=== PATIENT | male | born 1965 | race Caucasian/White ===

== ENCOUNTER 2016-08-08 17:00 | Inpatient (IN) ==
[2016-08-08] MEDS ORDERED: Dextrose Gel 15 GM PO PRN ×2 (20:36)
[2016-08-08] MEDS ORDERED: D5% in Water 1,000 ML IVC PRN (20:36)
[2016-08-08] MEDS ORDERED: *HR* Dextrose 50 % in Water (Syg) 50 ML SYRINGE IVP PRN (20:36)
[2016-08-08] MEDS ORDERED: Naloxone 0.4 MG/ML INJ IVP PRN (20:39)
[2016-08-08] MEDS: Insulin LISPRO 300 UNITS/3 ML VIAL SQ SCH ×2 (21:43→21:46)
[2016-08-08] MEDS: Insulin DETEMIR 100 UNIT/ML X5UNITS SQ SCH (21:46)
--- NOTE | 2016-08-08 22:12 | Internal Med History&Physical ---
<Mary Jackson - Last Filed: 08/08/16 23:49> Date of Encounter: 08/08/16 Time of Encounter: 21:30 Assessment and Plan (1) Atrial flutter Current visit: No Status: Acute - New onset of asymptomatic Atrial flutter. - Likely secondary to underlying RUSS given his morbid obesity and reported snoring. - Rate control with metoprolol. Will continue his home dose Lopressor 100 mg PO BID while adding Lopressor 25 mg PO q6H, which can be discontinued once patient' s heart rate gets better controlled. - Need anticoagulation given [id number] score 4. - Given the potential LHC tomorrow, will given one dose of Lovenox SC now for anticoagulation. - Appreciate cardiology input regarding anticoagulation, especially if patient gets LHC during this hospital stay. - Closely monitor with telemetry. Qualifiers: Atrial flutter type: unspecified Qualified Code(s): I48.92 - Unspecified atrial flutter (2) Ischemic cardiomyopathy Current visit: Yes Status: Acute - Nuclear stress test on 07/30/16 suggests inferior infarct with significant reversible romelia-infarct ischemia involving distal inferior, inferolateral & anterolateral pandey & apex with gated EF 35%. - Patient can benefit from LHC. - Will consult cardiology for possible LHC during current hospital stay. Appreciate cardiology input. - NPO except ice chips or medications after midnight. (3) Sleep apnea Current visit: Yes Status: Suspected - Patient's STOP BANG score > 5 suggests high risk of obstructive sleep apnea. - May contribute to his current A-flutter. - Patient will need RUSS work-up such as outpatient sleep study. Qualifiers: Sleep apnea type: obstructive Qualified Code(s): G47.33 - Obstructive sleep apnea (adult) (pediatric) (4) CAD (coronary artery disease) Current visit: Yes Status: Chronic - History of MO with LHC & stents in 02/2012 & 07/2013. - Continue aspirin, Plavix, metoprolol, statin and Imdur. Qualifiers: Coronary Disease-Associated Artery/Lesion type: [place] artery [place] vs. transplanted heart: [place] heart Associated angina: with stable angina Qualified Code(s): I25.118 - Atherosclerotic heart disease of [place] coronary artery with other forms of angina pectoris (5) CHF (congestive heart failure) Current visit: Yes Status: Chronic - Systolic CHF with gated EF 35% on recent nuclear stress test. - Appears to be controlled as patient reports no significant lower extremity edema. - Per patient, his last echo was years ago. Will obtain echocardiogram for further evaluation. - Continue home regimen diuretics. Qualifiers: Congestive heart failure type: systolic Congestive heart failure chronicity : chronic Qualified Code(s): I50.22 - Chronic systolic (congestive) heart failure (6) Diabetes mellitus Current visit: Yes Status: Chronic - Poorly controlled as Hgb A1C 11.8 on 06/10/16. - Start basal and sliding scale insulin with glucose monitoring. Qualifiers: Diabetes mellitus type: type 2 Diabetes mellitus complication status: with unspecified complications Diabetes mellitus halfway insulin use: without halfway use Qualified Code(s): E11.8 - Type 2 diabetes mellitus with unspecified complications (7) Hypertension Current visit: Yes Status: Chronic - BP within normal range. - Continue home antihypertensive regimen. Qualifiers: Hypertension type: essential hypertension Qualified Code(s): I10 - Essential (primary) hypertension (8) Hyperlipidemia Current visit: Yes Status: Chronic - Continue statin. Qualifiers: Hyperlipidemia type: unspecified Qualified Code(s): E78.5 - Hyperlipidemia , unspecified Internal Medicine - H&P: HPI Chief complaint: Exertional chest pain, dyspnea and diaphoresis Admitted From: Emergency Dept Plans for Post Hospital Care: Home History of present illness: Mr. Mcguire is a 50 year old morbidly obese male with PMH of CHF (likely systolic ), DM, HTN, hyperlipidemia and history of MO s/p multiple stents in 2011 & 2013. Patient had recent nuclear stress test done on 07/30/16, which suggests inferior infarct with significant reversible romelia-infarct ischemia involving distal inferior, inferolateral & anterolateral pandey & apex with gated EF 35%. Patient was in [facility] clinic today to discuss the result but found to have A-flutter on EKG. Patient was sent to [facility] where he got one dose of Lopressor 50 mg PO and then transferred to [place] for further evaluation and management. Upon encounter, patient denies current chest pain/discomfort, dyspnea, diaphoresis, palpitation, lightheadedness, syncope. But patient reports having worsening fatigue and exertional chest pain for past one month. He describes the left-sided chest pain as pressure-like radiating to the left scapula. It's aggravated by exertion and alleviated by rest. It's associated with shortness of breath, diaphoresis and nausea. Patient reports weight gain of 7 lb over past 2 weeks but states his bilateral lower extremity edema has been well-controlled. Per patient, Dr. Houston had discussed with him regarding LHC and he agrees to get that done. Patient states he is never diagnosed with sleep apnea but admits significant snoring when sleeping. Patient denies home oxygen use. Patient is full code. Past Med Surg Social Fam HX - Past Medical History Medical history: CHF, diabetes, hyperlipidemia, hypertension, myocardial infarction Psychiatric history: no psych history - Past Surgical History Surgical History: angioplasty/stent (02/2012 & 07/2013), cataract (Bilateral), other (Right foot fatty tumor removal at age 10) - Social History Smoking Status: Never smoker Smokeless Tobacco Status: No Alcohol use: none Drug use: none - Family History Father Living Status: Age at : 60 Hx Family Cardiac Disorders: Yes (CHF, HTN) Hx Family Endocrine Disorder: Yes (DM) Hx Family Neurologic Disorders: Yes (CVA) Mother Living Status: Age at : 70 Hx Family Cardiac Disorders: Yes (HTN) Hx Family Neurologic Disorders: Yes (CVA, dementia) Internal Medicine - H&P: Meds Clopidogrel [Plavix] 75 mg PO DAILY 01/06/16 [History] Insulin DETEMIR [Levemir Flextouch] 30 unit SQ BID 01/06/16 [History] Isosorbide MONOnitrate [Isosorbide Mononitrate] 30 mg PO DAILY 01/06/16 [History ] Linagliptin [Tradjenta] 5 mg PO DAILY 01/06/16 [History] Magnesium Oxide [Mag-Ox] 400 mg PO DAILY 01/06/16 [History] Metformin [Glucophage] 500 mg PO BIDWM 01/06/16 [History] Metoprolol [Lopressor] 100 mg PO BID 01/06/16 [History] Potassium Chloride [Klor-Con Sprinkle] 10 meq PO DAILY 01/06/16 [History] Simvastatin [Zocor] 80 mg PO HS 01/06/16 [History] Spironolactone [Aldactone] 50 mg PO DAILY 01/06/16 [History] Bumetanide [Bumex] 2 mg PO DAILY 08/08/16 [History] Escitalopram [Lexapro] 20 mg PO DAILY 08/08/16 [History] GlyBURIDE [GlyBURIDE] 10 mg PO DAILY 08/08/16 [History] HYDROcodone/Acet 5/325 mg [[place] 5-325 mg] 1 tab PO Q8H PRN 08/08/16 [History] Loratadine [Loratadine] 10 mg PO DAILY 08/08/16 [History] Montelukast [Singulair] 10 mg PO DAILY 08/08/16 [History] Tizanidine HCl 2 mg PO TID PRN 08/08/16 [History] Allergies No Known Allergies Allergy (Unverified 01/03/16 12:49) All Systems PM: A 10-system review of systems was performed and is negative for pertinent findings except as documented above in the HPI. - Constitutional Constitutional: fatigue, weight gain (7 lbs over 2 weeks), no chills, no fever(s ) - EENT Eyes: no change in vision Ears: no decreased hearing Nose, mouth and throat: no dysphagia, no odynophagia - Cardiovascular Cardiovascular ROS IM: as per HPI - Respiratory Respiratory: snoring, no cough, no hemoptysis - Gastrointestinal Gastrointestinal: nausea, no abdominal pain, no diarrhea, no hematochezia, no melena, no vomiting - Genitourinary Genitourinary ROS male: no difficulty urinating, no dysuria, no hematuria - Musculoskeletal Musculoskeletal ROS IM: arthralgias (Knee), no myalgias - Integumentary Integumentary IM: no pruritus, no rash - Neurological Neurological ROS: numbness (Bilateral distal upper extremitiy, chronic), no focal weakness - Hematologic/Lymphatic Hematologic/Lymphatic: no easy bleeding, no easy bruising - Constitutional Vitals: Temp Pulse Resp BP Pulse Ox 98.0 F 123 18 100/73 91 08/08/16 20:52 08/08/16 20:52 08/08/16 20:52 08/08/16 20:52 08/08/16 20:52 General appearance: Present: cooperative, A&O X 3, morbidly obese, no acute distress, answers questions appropriately - Head Head exam: Present: atraumatic, normocephalic - Eye Eye exam: Present: PERRL, conjuntiva pink, sclera anicteric - Neck Neck exam general surgery: Present: supple, trachea midline. Absent: lymphadenopathy - Respiratory Respiratory exam: Present: decreased breath sounds. Absent: accessory muscle use, rales, rhonchi, wheezes - Cardiovascular Cardiovascular exam: Present: irregular rhythm, +S1, +S2, tachycardia. Absent: diastolic murmur, gallop, rubs, systolic murmur - GI/Abdominal GI/Abdominal exam: Present: normal bowel sounds, soft, no peritoneal signs. Absent: distended, tenderness - Extremities Exam Extremities exam: Present: warm, radial pulses palpable and symetrical. Absent : calf tenderness, cyanotic, pedal edema Additional comments: Venous stasis appearance of bilateral lower extremities - Neurological Exam Neurological exam: Present: CN II-XII intact, oriented X3, no focal deficits. Absent: pronater drift, facial droop, speech deficit - Skin Skin exam: Present: dry, intact <Tyler Daly - Last Filed: 08/09/16 06:09> Date of Encounter: 08/08/16 Internal Medicine - H&P: HPI History of present illness: Mr. Mcguire is a 50 year old male All Systems PM: A 10-system review of systems was performed and is negative for pertinent findings except as documented above in the HPI. - Constitutional Vitals: Temp Pulse Resp BP Pulse Ox 97.7 F 105 17 125/81 95 08/09/16 04:46 08/09/16 04:46 08/09/16 04:46 08/09/16 04:46 08/09/16 04:46 Internal Med - H&P Results - Labs CBC & Chem 7: 08/09/16 04:35 08/09/16 04:35 Labs: Short CBC 08/09/16 Range/Units 04:35 WBC 9.1 (4.3-11.1) K/mcL Hgb 13.3 (12.9-16.9) g/dL Hct 40.9 (37.5-50.1) % Plt Count 184 (140-400) K/mcL BMP 08/09/16 04:35 Sodium 135 L Potassium 4.5 Chloride 101 Carbon Dioxide 25 BUN 20 Creatinine 1.22 Glucose 303 H Calcium 8.7 Cardiac Enzymes 08/09/16 Range/Units 04:35 Troponin I 0.01 (0-0.03) ng/mL - EKG Data -: EKG Interpreted by Myself - Diagnostic Studies Chest x-ray Status: image reviewed by me - Attending Attestation I personally interviewed and examined this patient and my medical decision- making was reviewed with the Resident Physician. I agree with the documented findings, disposition and treatment plan as described.
[2016-08-08] MEDS ORDERED: *HR* Enoxaparin 150 MG/ML SYRINGE SQ STA (22:17)
[2016-08-08] MEDS: Metoprolol 100 MG TABLET PO SCH (23:18)
[2016-08-09 05:05] LABS: Hematocrit 40.9 % (37.5-50.1); Hemoglobin 13.3 g/dL (12.9-16.9); Mean Corpuscular HGB Conc 32.5 g/dL (31.6-35.5); Mean Corpuscular Hemoglobin 28.2 pg (28.0-33.3); Mean Corpuscular Volume 86.7 fL (83.0-100.0); Mean Platelet Volume 9.9 fL (9.4-12.4); Platelet Count 184 K/mcL (140-400); Red Blood Count 4.72 M/mcL (4.19-5.50); Red Cell Distribution Width 14.1 % (11.5-14.5)
[2016-08-09 05:23] LABS: BUN/Creatinine Ratio 16 (6-26); Blood Urea Nitrogen 20 mg/dL (8-26); Calcium 8.7 mg/dL (8.6-10.8); Carbon Dioxide 25 mEq/L (19-29); Chloride 101 mEq/L (98-109); Glucose 303 mg/dL (70-99); Magnesium 1.7 mg/dL (1.6-2.6); Osmolality,Calculated 294 (280-300); Phosphorous 4.1 mg/dL (2.3-4.7); Potassium 4.5 mEq/L (3.5-4.5); Sodium 135 mEq/L (136-145); eGFR For African Americans > 60 (> 60); eGFR For Non-African Americans > 60 (> 60)
[2016-08-09] MEDS ORDERED: Perflutren Lipid Microsphere 1.3 ML in 0.9 % Sodium Chloride 8.7 ML IVP ONE (08:10)
[2016-08-09] MEDS ORDERED: Perflutren Lipid Microsphere 2 ML VIAL ONE (08:14)
--- NOTE | 2016-08-09 08:51 | Cardiology Consult Note ---
Date of Encounter: 08/09/16 Time of Encounter: 08:49 Assessment and Plan (1) Ischemic cardiomyopathy Current Visit: Yes Status: Acute Recent nuclear stress shows LVEF 35% with significant reversible ischemia ( inferior, inferolateral, anterolateral, apex). Prior LHC in 07/2013 with stent to OM. Discussed with patient. Will proceed with [facility] today. Continue aspirin and plavix. Switch simvastatin to atorvastatin 80mg daily. Continue metoprolol and imdur. Further recommendations will depend on [facility] findings. (2) Chest pain Current Visit: Yes Status: Acute see plan above, [facility] today Qualifiers: Chest pain type: unspecified Qualified Code(s): R07.9 - Chest pain, unspecified (3) Abnormal stress test Current Visit: Yes Status: Acute see plan above, [facility] today. (4) Chronic systolic (congestive) heart failure Current Visit: Yes Status: Acute LVEF 35% on recent nuclear stress. In 2013, LVEF was 40% on LHC and 55% on TTE. Will switch metoprolol tartrate to metoprolol succinate. Continue bumex and spirinolactone. He should also be started on CAMRON-I prior to discharge if BP allows. Further recs depending on [facility] results. We will continue to follow. (5) Atrial flutter Current Visit: No Status: Acute New diagnosis. Continue current management for now and continue to monitor on telemetry. Depending on [facility] findings, if he remains in atrial flutter may consider ADEEL-DCCV prior to discharge. Will need to be discharged on anticoagulation and have follow with EP (Dr. Darrel Taylor). Qualifiers: Atrial flutter type: unspecified Qualified Code(s): I48.92 - Unspecified atrial flutter Discussion w patient/family: The assessment and plan as outlined above was discussed with the patient and/or family members who expressed understanding and agreement. All questions were answered. Thank you for involving us in the care of your patient. Please call with any questions. History of Present Illness Consult date: 08/09/16 Requesting physician: Tyler Daly Consult reason: abnormal stress test, atrial flutter Chief complaint: fatigue, chest discomfort History of present illness: Mr. Mcguire is a 50 year old male with history of CAD s/p MUNA to OM in 2013. He recently had a nuclear stress test on 07/30/16 which showed LVEF 35% with inferior PA with ischemia of the mid-distal inferior, inferolateral wall, anterolateral wall, and apex. He was seen by Dr. Houston yesterday in cardiology clinic. He complained of extreme fatigue and some chest discomfort. ECG shows atrial flutter with RVR and he was sent to the ED to be admitted to the hospital. Currently, he is admitted to [facility] telemetry unit. He denies any current chest pain or other new complaints. Past Med Surg Social Fam HX - Past Medical History Medical history: CHF, diabetes, hyperlipidemia, hypertension, myocardial infarction Psychiatric history: no psych history - Past Surgical History Surgical History: angioplasty/stent (02/2012 & 07/2013), cataract (Bilateral), other (Right foot fatty tumor removal at age 10) - Social History Smoking Status: Never smoker Smokeless Tobacco Status: No Alcohol use: none Drug use: none - Family History Father Living Status: Age at : 60 Hx Family Cardiac Disorders: Yes (CHF, HTN) Hx Family Endocrine Disorder: Yes (DM) Hx Family Neurologic Disorders: Yes (CVA) Mother Living Status: Age at : 70 Hx Family Cardiac Disorders: Yes (HTN) Hx Family Neurologic Disorders: Yes (CVA, dementia) Medications and Allergies Clopidogrel [Plavix] 75 mg PO DAILY 01/06/16 [History] Insulin DETEMIR [Levemir Flextouch] 30 unit SQ BID 01/06/16 [History] Isosorbide MONOnitrate [Isosorbide Mononitrate] 30 mg PO DAILY 01/06/16 [History ] Linagliptin [Tradjenta] 5 mg PO DAILY 01/06/16 [History] Magnesium Oxide [Mag-Ox] 400 mg PO DAILY 01/06/16 [History] Metformin [Glucophage] 500 mg PO BIDWM 01/06/16 [History] Metoprolol [Lopressor] 100 mg PO BID 01/06/16 [History] Potassium Chloride [Klor-Con Sprinkle] 10 meq PO DAILY 01/06/16 [History] Simvastatin [Zocor] 80 mg PO HS 01/06/16 [History] Spironolactone [Aldactone] 50 mg PO DAILY 01/06/16 [History] Bumetanide [Bumex] 2 mg PO DAILY 08/08/16 [History] Escitalopram [Lexapro] 20 mg PO DAILY 08/08/16 [History] GlyBURIDE [GlyBURIDE] 10 mg PO DAILY 08/08/16 [History] HYDROcodone/Acet 5/325 mg [[place] 5-325 mg] 1 tab PO Q8H PRN 08/08/16 [History] Loratadine [Loratadine] 10 mg PO DAILY 08/08/16 [History] Montelukast [Singulair] 10 mg PO DAILY 08/08/16 [History] Tizanidine HCl 2 mg PO TID PRN 08/08/16 [History] Allergies No Known Allergies Allergy (Unverified 01/03/16 12:49) All Systems Review: A 10-system review of systems was performed and is negative for pertinent findings except as documented above in the HPI. Physical Examination Vital Signs, Last 4 Hours Temp Pulse Resp BP Pulse Ox 08/09/16 07:10 97.9 F 99 16 109/78 93 General: Conversant, No Apparent Distress HEENT: Atraumatic, Normocephaly, Mucus Membranes Moist Neck: Normal carotid pulses Cardiac: Reg Rate and Rhythm, Normal S1 and S2, No Murmur Lungs: Normal Breath Sounds, No Wheeze, Rales, Rhonchi Neuro: Alert and responsive, No focal deficits noted Abdomen: Soft, Non-Tender Skin: No rashes noted on visualized skin Extremities: Other (1+ LE edema bilaterally, skin changes of chronic venous stasis) Results 08/09/16 04:35 08/09/16 04:35 Lab Results 08/09/16 08/09/16 08/09/16 04:35 04:35 04:35 WBC 9.1 Hgb 13.3 Hct 40.9 Plt Count 184 Sodium 135 L Potassium 4.5 Chloride 101 Carbon Dioxide 25 BUN 20 Creatinine 1.22 Glucose 303 H Calcium 8.7 Magnesium 1.7 Troponin I 0.01 - Imaging and Cardiology Chest Xray: report reviewed Stress Test: report reviewed Other Results: telemetry reviewed - EKG Interpretation EKG results cardiology: personally reviewed Consult Discharge Plan - Plan Referrals: Kandis Miles, RECRUITING ADMINISTRATOR [Primary Care Provider] -
[2016-08-09] MEDS: Insulin LISPRO 300 UNITS/3 ML VIAL SQ SCH ×4 (09:05→20:30)
[2016-08-09] MEDS: Insulin DETEMIR 100 UNIT/ML X5UNITS SQ SCH ×2 (09:05→20:29)
[2016-08-09] MEDS: Metoprolol 100 MG TABLET PO SCH (09:05)
[2016-08-09 09:22] LABS: INR 1.1; Prothrombin Time 12.2 Seconds (9.4-12.1)
[2016-08-09] MEDS ORDERED: *HR* FentaNYL (PF) 100 MCG/2 ML VIAL ONE (09:23)
[2016-08-09] MEDS ORDERED: Verapamil 5 MG/2 ML VIAL ONE (09:23)
[2016-08-09] MEDS ORDERED: 0.9 % Sodium Chloride 1,000 ML ONE ×2 (09:24→09:54)
[2016-08-09] MEDS ORDERED: *HR* Heparin 10,000 UNIT/10 ML VIAL ONE (09:24)
[2016-08-09] MEDS ORDERED: *HR* Midazolam HCl 5 MG/5 ML VIAL IVP ONE (09:24)
[2016-08-09] MEDS ORDERED: Nitroglycerin 1,000 MCG/10 ML VIAL IV ONE (09:24)
[2016-08-09] MEDS ORDERED: Heparin 1,000 UNITS/500 mL NS 500 ML ONE (09:24)
[2016-08-09 09:25] LABS: Activated Partial Thrombo Time 36.1 Seconds (26.0-36.0)
--- NOTE | 2016-08-09 10:07 | Pre-Sedation Evaluation ---
Pre-sedation evaluation - Pre-sedation checklist Date of procedure: 08/09/16 Procedure: heart cath Recent Vitals: Last Vital Signs Temp 97.9 F 08/09/16 07:10 Pulse 99 08/09/16 07:10 Resp 16 08/09/16 07:10 BP 109/78 08/09/16 07:10 Pulse Ox 93 08/09/16 07:10 H&P (including ROS) documented in medical record: Yes Previous reaction to sedatives/anesthetics: No Dietary Status: NPO after Midnight Dentition: No loose teeth or bridges ASA Classification *see protocol: CLASS II-Mild systemic disease Plan of Care: Pt appropriate candidate for procedure/moderate/conscious sedation , Risks/benefits of procedure/sedation discussed w/ patient/family
[2016-08-09] MEDS ORDERED: Nitroglycerin Spray 4.9 GM BOTTLE ONE (10:17)
--- NOTE | 2016-08-09 11:16 | Invasive Diagnostic Lab Proc ---
Name: Jp Mcguire Date of Study: 08/09/2016 Date: 1965 Ht: 70.9in Medical Record#: [id number] Age: 50 Wt: 335.10lb Gender: Male BSA: 2.62 Order #: [id number] BMI: 46.91 Physicians Procedure Physician: Dino Clay MD, [facility] Referring MD: Referring MD: Staff Name Position Time In Jesus Trejo RN Factory Machine Computer Operator 10:05 AM Chen Jiménez RT (R) Scrub 10:05 AM Mayelin Poe RN Monitor 10:05 AM Indications Indication Unstable Angina Abnormal Test - Stress Cardiomyopathy Procedures Performed Procedure L HRT ARTERY/VENTRICLE ANGIO Pre-Procedure Checklist Informed consent is complete signed and on chart. H\\T\\P is on chart. ID band is on and ID verified with patient. Patient NPO for procedure The procedure was described for the patient and questions were answered. Blood Pressure: 109/78 ECG is on chart. Rhythm: Atrial Flutter Plan of Care Patient will tolerate the procedure without complications. Adequate level of comfort will be maintained. Hemodynamics will remain stable Patient will recover from procedure without complications. Respiratory function will be maintained. Cardiac rhythm will remain stable. Patient temperature will be maintained. Patient and/or family have verbalized understanding of the procedure. Patient Education Chief Complaint/Reason for Test: Cardiac Cath Developmental Category: Adult (18-64 years) Developmentally Appropriate for Age: Yes Learning Barriers: None Education Needs: Procedure Education Method: Verbal Information Taught: Cardiac Cath Educational Evaluation: Able to repeat information Intravenous Access Time IV Size Location DC'd Fluid/Drip Rate Units RN 10:00 AM 18g 1 /" Patent On Arrival Rt Hand 0.9NaCl 25 ml/hr Jesus Trejo RN Allergies No Known Allergies Vital Signs Time BP (mmHg) HR (bpm) O2 Sat. RR (bpm) LOC 09:33 AM 109 / 78 99 93 % 16 5 = Fully awake and oriented or at pre-proc level 10:16 AM / % 4 = Oriented but drowsy 10:16 AM / % 4 = Oriented but drowsy 10:01 AM 118 / 62 110 93 % 9 10:06 AM 99 / 62 113 94 % 10:10 AM 100 / 60 97 92 % 13 10:15 AM 107 / 60 98 97 % 17 10:20 AM 117 / 85 107 97 % 21 10:25 AM 133 / 55 111 95 % 18 10:30 AM 111 / 63 109 95 % 14 10:35 AM 100 / 60 110 94 % 14 10:40 AM 94 / 58 99 95 % 9 10:31 AM / % 4 = Oriented but drowsy Procedural Medications Time Medication Dose Units Method Given By 10:02 AM Oxygen 2 L/min nasal cannula Jesus Trejo RN 10:03 AM Versed 2 mg Intravenous Jesus Trejo RN 10:03 AM Fentanyl 50 mcg Intravenous Jesus Trejo RN 10:10 AM Oxygen 5 L/min nasal cannula Jesus Trejo RN 10:16 AM Nitroglycerin 400 mcg Sublingual Jesus Trejo RN 10:18 AM Lidocaine 2% 0.5 ml Subcutaneous Dino Clay MD, FACC 10:21 AM Lidocaine 2% 19 ml Subcutaneous Dino Clay MD, FACC 10:28 AM Versed 1 mg Intravenous Jesus Trejo RN 10:28 AM Fentanyl 25 mcg Intravenous Jesus Trejo RN ASA Classification: CLASS II- Mild systemic disease (i.e. well-controlled diabetes, hypertension, asthma, cigarette smoking) Rosy Score Preprocedure Postprocedure Activity 2- Moves 4 extremities sustained head lift Activity 2- Moves 4 extremities sustained head lift Circulation 2- SBP +/= 20 points of pre-anesthetic level Circulation 2- SBP +/= 20 points of pre-anesthetic level Consciousness 2- Awake and alert oriented x 3 Consciousness 2- Awake and alert oriented x 3 O2 Saturation 2- Able to maintain O2 satruation of 92% on room air O2 Saturation 2- Able to maintain O2 satruation of 92% on room air Respiratory 2- Able to deep breathe and cough well Respiratory 2- Able to deep breathe and cough well Total Score 10 Total Score 10 Contrast Agent: Isovue Diagnostic Contrast: 72 ml Total Contrast: 72 ml Fluoro Dose: 334 mGy Procedure Log Time Note Enter By 09:32 AM CathStat 09:58 AM Pt arrived to corn lab technician 2 at 09:58 scoates 09:59 AM Case Start 09:59 AM Vitals capture started with the following parameters, Patient=Adult, Interval=5 min, Initial Kcokgayt=684 mmHg, Deflation Rate=5 mmHg, Cuff placed on Left Arm 09:59 AM Physician arrived 09:59 scoates 10:00 AM Meet and greet completed scoates 10:00 AM Sign in performed according to hospital policy. scoates 10:00 AM Procedure start 10:00 scoates 10:01 AM KF=588 bpm, OWLI=743/62 mmhg, SpO2=93.0 %, Resp=9 B/min 10:02 AM Time: 10:02 Oxygen on at 2 L/min per nasal cannula by Jesus Trejo RN scoates 10:03 AM Time: 10:03 Versed 2 mg Intravenous Given by Jesus Trejo RN scoates 10:03 AM Time: 10:03 Fentanyl 50 mcg Intravenous Given by Jesus Trejo RN scoates 10:05 AM Jesus Trejo RN Position: Factory Machine Computer Operator Time in: 10:05 scoates 10:05 AM Chen Jiménez RT (R) Position: Scrub Time in: 10:05 scoates 10:06 AM Mayelin Poe RN Position: Monitor Time in: 10:05 scoates 10:06 AM Patient charges- Angio tray pack, Navilyst 3mm J, Pulse Oximetry and ACIST tubing and transducer scoates 10:06 AM Case Delayed No. inpatient scoates 10:06 AM CK=390 bpm, NIBP=99/62 mmhg, SpO2=94.0 %, Comment=aflutter 10:07 AM Hair removed from procedure site in procedure lab using clippers. Rt wrist and rt groin prepped with Chloraprep by Jesus Trejo RN, safety strap applied then patient was draped. Skin intact. scoates 10:08 AM ASA Class CLASS II- Mild systemic disease (i.e. well-controlled diabetes, hypertension, asthma, cigarette smoking) scoates 10:10 AM Recorded ECG: RI=140 Condition=Condition 1 10:10 AM HR=97 bpm, POJI=184/60 mmhg, SpO2=92.0 %, Resp=13 B/min, Comment=aflutter 10:10 AM Time: 10:10 Oxygen on at 5 L/min per nasal cannula by Jesus Trejo RN scoates 10:14 AM Reference ECG taken 10:15 AM HR=98 bpm, AVHG=384/60 mmhg, SpO2=97.0 %, Resp=17 B/min, Comment=aflutter 10:16 AM Time: 10:16 Patient comfortable and pain free: Yes scoates 10:16 AM Time: 10:16LOC: 4 = Oriented but drowsy scoates 10:16 AM Clinical Presentation: Unstable angina scoates 10:16 AM Time out performed according to hospital policy scoates 10:17 AM Pressure channel 1 zeroed. 10:17 AM Time: 10:16 Nitroglycerin 400 mcg Sublingual Given by Jesus Trejo RN scoates 10:18 AM Time: 10:18 0.5 ml Lidocaine 2% to right radial Subcutaneous Given by Dino Clay MD, [facility] scoates 10:19 AM Unsuccessful access attempt # 1 into the right Radial artery. Manual pressure applied to achieve hemostasis.. scoates 10:20 AM HM=270 bpm, YPIS=806/85 mmhg, SpO2=97.0 %, Resp=21 B/min, Comment=aflutter 10: AM Time: 10: 19 ml Lidocaine 2% to right groin Subcutaneous Given by Dino Clay MD, [facility] scoates 10: AM SK=574 bpm, OOGF=683/55 mmhg, SpO2=95.0 %, Resp=18 B/min, Comment=aflutter 10:27 AM access obtained. scoates 10: AM Time: : Versed 1 mg Intravenous Given by Jesus Trejo RN scoates 10: AM Time: 10: Fentanyl 25 mcg Intravenous Given by Jesus Trejo RN scoates 10: AM sheath removed, d/t venous access. holding pressure at this time scoates 10:30 AM XO=196 bpm, AXIT=218/63 mmhg, SpO2=95.0 %, Resp=14 B/min 10:31 AM Time: 10:16LOC: 4 = Oriented but drowsy scoates 10:31 AM Time: 10:16 Patient comfortable and pain free: Yes scoates 10:31 AM Access obtained by percutaneous puncture. 5Fr 23cm St Yrn Ultimum sheath placed in right Femoral artery. [id number] scoates 10:32 AM 5Fr FL 4 catheter inserted over the wire [facility] scoates 10:33 AM Recorded Pressure: Ao, HR=94, Condition=Condition 1 (Aorta) Ao 102/83/92 10:34 AM LCA angiography performed in multiple views. scoates 10:34 AM Lesion found in Mid LAD. Pre Stenosis: 50 Pre JEROME Flow: scoates 10:34 AM Catheter removed scoates 10:34 AM 5Fr FR 4 catheter inserted over the wire DNC scoates 10:35 AM SU=128 bpm, QVTX=270/60 mmhg, SpO2=94.0 %, Resp=14 B/min, Comment=aflutter 10:35 AM Pressure channel 1 zeroed. 10:36 AM Recorded Pressure: LV, JG=253, Condition=Condition 1 (Left Ventricle) LV 102/2/9 10:36 AM Catheter selectively placed in left ventricle scoates 10:36 AM Bolus angiogram of left Ventricle complete: 12 ml/sec for a total of 36 mls scoates 10:37 AM Recorded Pressure: LV, Ao, AQ=482, Condition=Condition 1 (Left Ventricle) LV 100/-2/59, (Aorta) Ao 98/61/76 10:38 AM Recorded Pressure: Ao, HR=92, Condition=Condition 1 (Aorta) Ao 93/77/85 10:38 AM RCA angiography performed in multiple views. scoates 10:40 AM HR=99 bpm, NIBP=94/58 mmhg, SpO2=95.0 %, Resp=9 B/min 10:42 AM Coronary Dominance: Left scoates 10:42 AM Lesion found in Mid RCA. Pre Stenosis: 65 Pre JEROME Flow: scoates 10:43 AM Catheter removed scoates 10:43 AM Procedure completed at 10:43 scoates 10:43 AM Sign out completed: Radiation Dose 334 mGy Fluoro Time: 1.3 Isovue 370 - 200ml contrast 72 ml given by Dino Clay MD, [facility]. Complications: NoneCardiac Rehab Consult needed: YesConfirmed administered medications: Yes scoates 10:44 AM Arterial sheath pulled using manual compression and V+ Pad for 15 minutes by Chen Jiménez RT (R) scoates 10:44 AM Post ECG Atrial Flutter scoates 10:44 AM 10:44 Post Pulses Bilateral DP \\T\\ PT 1+ scoates 10:44 AM NIBP STAT measurement started. 10:44 AM Information taught Cardiac Cath scoates 10:44 AM Education needs Procedure, Plan of Care, and Responsibilities of Patient in Care scoates 10:44 AM Learning barriers :None scoates 10:44 AM Education Methods Verbal scoates 10:44 AM Education evaluation Able to repeat information scoates 10:45 AM no family present at this time, Patient states that there isnt anyone that he wants to call and talk to either scoates 10:46 AM Plavix, Effient or Brilinta given No scoates 10:46 AM Delay to floor No scoates 10:46 AM Complications: None scoates 10:46 AM Time: 10:31 Patient comfortable and pain free: Yes scoates 10:46 AM Time: 10:31LOC: 4 = Oriented but drowsy scoates 10:53 AM Post Blood Pressure 119/75 scoates 11:05 AM Report given to Flynn ROSE Pt taken to 2NE Room #25. 11:04 scoates 11:05 AM Delay to floor No scoates 11:05 AM Patient out of room: 11:05 scoates 11:05 AM Site status No bleeding/hematoma - Rt Groin as reported by Chen Jiménez RT (R) at 11:05 scoates Complications Complication None None Hemodynamics Pressures Site Systolic/A Wave Diastolic/V Wave Mean AO 102 83 92 LV 102 2 9 LV 100 -2 59 AO 98 61 76 AO 93 77 85 Post Procedure Information Blood Pressure: 119/75 mmHg Rhythm: Atrial Flutter Post procedural instructions were given Closure Device Time Device Success/Fail 08/09/2016 10:46:00 AM Manual Compression Successful Site Checks Time Location Status Staff Sheath In? Note 11:05 AM Rt Groin No bleeding/hematoma Chen Jiménez RT (R) Pulses Time Site Pre-Procedure Post-Procedure Note 08/09/2016 9:29:00 AM Bilateral DP \\T\\ PT 1+ 08/09/2016 9:29:00 AM Bilateral radial 2+ 10:44:00 AM Bilateral DP \\T\\ PT 1+ Updated by Mayelin Feldman RN on 08/09/2016 11:05:47 AM electronically signed on 08/09/2016 11:10:12 AM with status of Final
[2016-08-09] MEDS: Bumetanide 1 MG TABLET PO SCH (11:51)
[2016-08-09] MEDS: Isosorbide MONOnitrate (24 HR) 30 MG TAB.ER.24H PO SCH (11:51)
--- NOTE | 2016-08-09 13:23 | Invasive Diagnostic Lab ---
Name: Jp Mcguire Date of Study: 08/09/2016 Date: 1965 Ht: 180.0 cm /70.9 in Medical Record#: [id number] Age: 50 Wt: 152. kg / 335.10 lb Account/Order#: [id number] Gender: Male BSA: 2.62 Order #: [id number] Fluoro Dose: 334 mGy BMI: 46.91 Procedure Physician: Dino Clay MD, FACC Referring MD: Referring MD: Procedures Performed: LEFT HEART CATH Indications: Unstable Angina, Abnormal Test - Stress, Cardiomyopathy Impressions: There is moderate one vessel coronary artery disease. There is moderate LV Dysfunction EF 35% Stent placed from a prior procedure in the 1st Marginal is patent. Recommendations: Optimal medical therapy of patient's disease. Aggressive risk factor modification. Patient being referred for cardiac rehab. History/Risk Factors: Diabetes Hypertension Dyslipidemia CHF Prior ME Procedure Access obtained in the right Femoral artery by percutaneous puncture Complications: None, None Contrast: Isovue 72ml Closure Device: Manual Compression Hemodynamics: Pressures Site Systolic/ A Wave Diastolic/ V Wave End Diastolic/ Mean HR AO 102 83 92 94 LV 102 2 9 111 LV 100 -2 59 97 AO 98 61 76 104 AO 93 77 85 92 LV Ventriculography Ejection Method: LV Gram Ejection Fraction: 35% Wall Motion: LAMAR Anterobasal Moderate Hypokinesis Anterolateral Moderate Hypokinesis Apical: Moderate Hypokinesis Inferoapical Moderate Hypokinesis Inferobasal Moderate Hypokinesis Coronary Dominance: Left Lesion Findings/Interventions * Left Main Coronary Artery The LMCA is angiographically free of disease. * Left Anterior Descending There is a 50% stenosis in the Mid LAD. * Circumflex The Circumflex is angiographically free of significant disease. The 1st Marginal is angiographically free of significant disease. Patent stent in distal OM The Left PDA has mild disease * Right Coronary Artery The Right Coronary Artery is small and non dominant. There is a 65% stenosis in the Mid RCA. Updated by Mayelin Feldman RN on 08/09/2016 10:53:35 AM Dino Clay MD, FACC electronically signed on 08/09/2016 1:19:41 PM with status of Final
--- NOTE | 2016-08-09 13:30 | Event Note ---
Date of Encounter: 08/09/16 Time of Encounter: 13:28 - Cardiology Event Note Eliquis montoya check $58/month. Discussed with pt option of Coumadin instead, but he prefers the Eliquis for now. Will give 30 day free card. C showed stable disease--no intervention. Will stop Plavix and continue ASA and Eliquis. Continue to follow-up for his A-Flutter. Re-evaluate in AM.
--- NOTE | 2016-08-09 14:01 | Internal Med Progress Note ---
Date of Encounter: 08/09/16 Time of Encounter: 10:00 - Assessment and plan (1) Atrial flutter Current Visit: No Status: Acute Assessment and plan: Etiology is undetermined. TSH 1.943 on 06/10/16. Patient had a history of CAD and CHF. - We will continue beta janet for rate control. - Eliquis for anticoagulation per cardiology. - Continue closely monitoring Qualifiers: Atrial flutter type: unspecified Qualified Code(s): I48.92 - Unspecified atrial flutter (2) Morbid obesity Current Visit: Yes Status: Acute Assessment and plan: Need for lifestyle modification or bariatric surgery Qualifiers: Obesity type: due to excess calories Qualified Code(s): E66.01 - Morbid ( severe) obesity due to excess calories (3) Ischemic cardiomyopathy Current Visit: Yes Status: Acute Assessment and plan: LVEF 35-40%. S/P stent. Had another [facility] today. Continue ASA, beta janet, and statin. On Bumex and spironolactone. Will add low dose ACEI. Closely monitor blood pressure (4) Diabetes mellitus Current Visit: Yes Status: Chronic Assessment and plan: Continue basal and sliding scale insulin Qualifiers: Diabetes mellitus type: type 2 Diabetes mellitus complication status: with unspecified complications Diabetes mellitus dinner cook insulin use: with [facility] use Qualified Code(s): E11.8 - Type 2 diabetes mellitus with unspecified complications; Z79.4 - jail (current) use of insulin (5) Hypertension Current Visit: Yes Status: Chronic Assessment and plan: On blood pressure medication. Close monitor blood pressure. BP is not high now. Qualifiers: Hypertension type: essential hypertension Qualified Code(s): I10 - Essential (primary) hypertension (6) Hyperlipidemia Current Visit: Yes Status: Chronic Assessment and plan: On atorvastatin Qualifiers: Hyperlipidemia type: unspecified Qualified Code(s): E78.5 - Hyperlipidemia , unspecified (7) DVT prophylaxis Current Visit: Yes Status: Acute Assessment and plan: Patient is on eliquis. - Time Spent With Patient 25 - 35 minutes - Subjective Interval history: Patient is a 48-year-old male admitted for a flutter and exertional shortness of breath. His past medical history is significant for CHF, diabetes, hyperlipidemia, hypertension, CAD S/P stent. Patient was seen and examined. He is awake alert, oriented 3. Denies chest pain or shortness of breath when I saw him. Vital signs stable. A flutter with heart rate at 90s. Cardiology consult appreciated, patient had LHC, other recommendation will be followed. - Constitutional Vitals: Temp Pulse Resp BP Pulse Ox 98.0 F 95 16 130/90 94 08/09/16 13:02 08/09/16 13:02 08/09/16 13:02 08/09/16 13:02 08/09/16 13:02 General appearance: Present: cooperative, A&O X 3, morbidly obese, no acute distress, answers questions appropriately - Head Head exam: Present: atraumatic, normocephalic - Eye Eye exam: Present: PERRL, conjuntiva pink, sclera anicteric Pupils: Present: PERRL - Neck Neck exam general surgery: Present: supple, trachea midline. Absent: lymphadenopathy - Respiratory Respiratory exam: Present: CTAB. Absent: accessory muscle use, rales, rhonchi, wheezes - Cardiovascular Cardiovascular exam: Present: RRR, +S1, +S2. Absent: diastolic murmur, gallop, rubs, systolic murmur - GI/Abdominal GI/Abdominal exam: Present: normal bowel sounds, soft, no peritoneal signs. Absent: distended, tenderness - Extremities Exam Extremities exam: Present: warm, radial pulses palpable and symetrical. Absent : calf tenderness, cyanotic, pedal edema - Neurological Exam Neurological exam: Present: CN II-XII intact, oriented X3, no focal deficits. Absent: pronater drift, facial droop, speech deficit - Skin Skin exam: Present: dry, intact Internal Medicine: Result - Labs CBC & Chem 7: 08/09/16 04:35 08/09/16 04:35 Labs: Short CBC 08/09/16 Range/Units 04:35 WBC 9.1 (4.3-11.1) K/mcL Hgb 13.3 (12.9-16.9) g/dL Hct 40.9 (37.5-50.1) % Plt Count 184 (140-400) K/mcL BMP 08/09/16 04:35 Sodium 135 L Potassium 4.5 Chloride 101 Carbon Dioxide 25 BUN 20 Creatinine 1.22 Glucose 303 H Calcium 8.7 Cardiac Enzymes 08/09/16 Range/Units 04:35 Troponin I 0.01 (0-0.03) ng/mL - ABG Interpretation ABG results: PT/INR, D-dimer PT 12.2 Seconds (9.4-12.1) H 08/09/16 09:03 Consult Discharge Plan - Plan Referrals: Kandis Miles, SERVICE DELIVERY ANALYST [Primary Care Provider] -
--- NOTE | 2016-08-09 14:11 | ECHO - Doppler Report ---
Echo with Imaging Enhancement Agent Name: Jp Mcguire Date of Study: 08/09/2016 Date: 1965 Ht: 71.0 in Medical Record#: [id number] Age: 50 Wt: 330.0 lb Gender: Male BSA: 2.61 Order #: [id number] Location: [facility] Room #: 2NE25 Reading Physician: Juan Carlos Moeller MD, [facility] Judicial Registrar: Romeo Arredondo RDCS Ordering Physician: Tyler Daly MD Primary Physician: Indications: Evaluate Ejection, Evaluate for Thrombus Impressions: Technically sub-optimal due to poor echocardiographic windows. Echo contrast was used. Mild LV systolic dysfunction, LVEF 45%. There is mild global LV hypokinesis. Mild concentric left ventricular hypertrophy. Indeterminate diastolic function. Right ventricle was not well visualized. Appears normal in size. Probable mild RV hypokinesis. Cardiac valves were not well visualized. No evidence of significant valvular dysfunction. Unable to estimate RVSP due to lack of TR jet. Left Ventricular Wall Motion: Rest Echo Findings The apex, apical inferior, mid inferior, basal inferior, apical anterior, mid anterior, basal anterior, apical septal, mid inferior septal, basal inferior septal, apical lateral, mid anterior lateral, basal anterior lateral, mid anterior septal, mid inferior lateral, basal anterior septal and basal inferior lateral pandey were hypokinetic. Findings: Study Quality * Technically sub-optimal due to poor echocardiographic windows. Echo contrast was used. ECG Findings * Probable atrial flutter with RVR. Left Ventricle * Mild LV systolic dysfunction, LVEF 45%. There is mild global LV hypokinesis. * Mild concentric left ventricular hypertrophy. * Indeterminate diastolic function. Right Ventricle * Right ventricle was not well visualized. Appears normal in size. Probable mild RV hypokinesis. Left Atrium * Normal left atrial size. Right Atrium * Normal right atrial size. Aorta * Normally sized aortic root. Pericardium * There is no pericardial effusion present. IVC * The IVC was not visualized. Aortic Valve * Aortic valve not well visualized. * No aortic stenosis. * No aortic regurgitation. Mitral Valve * Mitral valve not well visualized. * No mitral stenosis. * No mitral regurgitation. Tricuspid Valve * Tricuspid valve not well visualized. * No tricuspid stenosis. * No tricuspid regurgitation. * Unable to estimate RVSP due to lack of TR jet. Pulmonic Valve * Pulmonic valve not well visualized. * No pulmonic stenosis. * Trace pulmonic regurgitation. History Hypertension Diabetes Family History of CAD History of CAD/PTCA Myocardial Infarction Congestive Heart Failure 07/07/13 a Previous Echo was performed. Contrast: Definity 1.3 ml in 8.7 ml of saline 3 ml. Measurements: BP: 100/ 73 2D Normal Values RVIDd: 2.90 cm IVSd: 1.30 cm 0.6 - 1.0 cm LVIDd: 4.90 cm 3.7 - 5.6 cm LVPWd: 1.30 cm 0.6 - 1.1 cm LVIDs: 3.40 cm 1.5 - 3.6 cm AO: 3.20 cm < 4.0 cm LA volume: 68 Updated by Juan Carlos Moeller MD, [facility] on 08/09/2016 2:07:40 PM electronically signed on 08/09/2016 2:08:21 PM with status of Final Wall Motion R[place]ussen: 1=Normal, 2=Hypokinesis, 3=Akinesis, 4=Dyskinesis, 5=Aneurysmal, 6=Hyperkinetic, X=Not Visualized (Blank)=Missing
[2016-08-09] MEDS: APIXABAN 5 MG TABLET PO SCH (20:29)
[2016-08-09] MEDS ORDERED: Metoprolol XL (24 HR) Succ 50 MG TAB.ER.24H PO SCH (21:00)
[2016-08-10 04:48] LABS: Basophils % 0.4 %; Eosinophils # 0.1 K/mcL (0.0-0.6); Eosinophils % 1.4 %; Hemoglobin 13.3 g/dL (12.9-16.9); Immature Granulocytes % 0.4 % (0-4); Lymphocytes # 1.9 K/mcL (0.6-4.6); Lymphocytes % 18.8 %; Mean Corpuscular HGB Conc 33.3 g/dL (31.6-35.5); Mean Corpuscular Volume 87.1 fL (83.0-100.0); Mean Platelet Volume 10.4 fL (9.4-12.4); Monocytes # 1.2 K/mcL (0.0-1.3); Monocytes % 12.3 %; Neutrophils # 6.7 K/mcL (1.6-8.9); Platelet Count 176 K/mcL (140-400); Red Blood Count 4.59 M/mcL (4.19-5.50); Segmented Neutrophils % 66.7 %
[2016-08-10 05:03] LABS: BUN/Creatinine Ratio 15 (6-26); Blood Urea Nitrogen 16 mg/dL (8-26); Calcium 9.1 mg/dL (8.6-10.8); Carbon Dioxide 28 mEq/L (19-29); Chloride 102 mEq/L (98-109); Glucose 210 mg/dL (70-99); Osmolality,Calculated 289 (280-300); Potassium 4.7 mEq/L (3.5-4.5); Sodium 136 mEq/L (136-145); eGFR For African Americans > 60 (> 60); eGFR For Non-African Americans > 60 (> 60)
[2016-08-10] MEDS: Bumetanide 1 MG TABLET PO SCH (09:04)
[2016-08-10] MEDS: Isosorbide MONOnitrate (24 HR) 30 MG TAB.ER.24H PO SCH (09:04)
[2016-08-10] MEDS: Aspirin Enteric Coated 81 MG Tablet PO SCH (09:04)
[2016-08-10] MEDS: APIXABAN 5 MG TABLET PO SCH ×2 (09:04→21:06)
[2016-08-10] MEDS: Metoprolol XL (24 HR) Succ 50 MG TAB.ER.24H PO SCH ×2 (09:04→21:06)
[2016-08-10] MEDS: Insulin LISPRO 300 UNITS/3 ML VIAL SQ SCH ×4 (09:10→21:07)
[2016-08-10] MEDS: Insulin DETEMIR 100 UNIT/ML X5UNITS SQ SCH ×2 (09:12→21:07)
--- NOTE | 2016-08-10 10:08 | Cardiology Progress Note ---
Date of Encounter: 08/10/16 Time of Encounter: 09:40 Assessment and Plan (1) Atrial flutter Current Visit: Yes Status: Acute New diagnosis. TSH normal, no acute electrolyte abnormalities noted. Continues to have uncontrolled rates. 12 hour tele: avg NU=294 atrial flutter. Increased Toprol XL to 100 mg BID today. Discussed with Dr. Clay, recommend ADEEL/DCCV in AM, patient is agreeable to proceed. NPO after MD. Villalobos started on 08/09/16 for anticoagulation, CHA2Ds Vasc =4 Qualifiers: Atrial flutter type: unspecified Qualified Code(s): I48.92 - Unspecified atrial flutter (2) CHF (congestive heart failure) Current Visit: Yes Status: Chronic Newly noted decreased in LVEF; likely tachycardia induced secondary to atrial flutter with RVR. TTE 08/09/16: (poor windows) EF 45% with mild global hypokinesis, mild cLVH, probable mild RV hypokinesis, no evidence of significant valvular dysfunction. Prior echo in 2013 demonstrated EF 55%. Recent abnormal stress test, therefore patient had C 08/09/16 which demonstrated stable CAD with patent stents, EF 35-40%. Appears euvolemic upon exam, denies overt CHF symptoms. Continue betablocker and ACEi. CHF teaching provided including Na/Fluid restriction diet. Qualifiers: Congestive heart failure type: systolic Congestive heart failure chronicity : chronic Qualified Code(s): I50.22 - Chronic systolic (congestive) heart failure (3) CAD (coronary artery disease) Current Visit: Yes Status: Chronic History of OR with LHC & stents in 02/2012 & 07/2013. C 08/09/16: Mild-moderate non-obstructive CAD with patent stents, EF 35-40%. Continue asa, statin, and betablocker. Qualifiers: Coronary Disease-Associated Artery/Lesion type: [place] artery [place] vs. transplanted heart: [place] heart Associated angina: with stable angina Qualified Code(s): I25.118 - Atherosclerotic heart disease of [place] coronary artery with other forms of angina pectoris (4) Sleep apnea Current Visit: Yes Status: Suspected Suspect underlying RUSS, denies hx of sleep study. May be contributing to atrial flutter with RVR. Recommend RUSS evaluation. Qualifiers: Sleep apnea type: obstructive Qualified Code(s): G47.33 - Obstructive sleep apnea (adult) (pediatric) Discussion w patient/family: The assessment and plan as outlined above was discussed with the patient and/or family members who expressed understanding and agreement. All questions were answered. Thank you for involving us in the care of your patient. Please call with any questions. The patient will be discussed and reviewed with Dr. Clay; changes to be made accordingly. Subjective Principal diagnosis: Atrial flutter Interval history: Seen and examined. Mr. Howard initially admitted after being seen by Dr. Houston in the outpatient setting. Results of TTE and LHC reviewed with patient. Denies issues with right radial cath site. Denies chest pain/discomfort, palpitations, dyspnea, or dizziness. HR 110's during exam. Objective Vital Signs, Last 4 Hours Temp Pulse Resp BP Pulse Ox 08/10/16 08:46 93 08/10/16 07:00 98.4 F 123 15 135/96 93 General: Conversant, Other (obese) Neck: No JVD Cardiac: Other (irregularly irregular) Lungs: Normal Breath Sounds Neuro: Alert and responsive Abdomen: Soft Skin: No rashes noted on visualized skin Musculoskeletal: No Chest Wall Tenderness Extremities: No Edema, Normal Pulses Other: right radial cath site: stable, no hematoma, or oozing noted at site. Results 08/10/16 04:08 08/10/16 04:08 Lab Results 08/10/16 08/10/16 04:08 04:08 WBC 10.0 Hgb 13.3 Hct 40.0 Plt Count 176 Sodium 136 Potassium 4.7 H Chloride 102 Carbon Dioxide 28 BUN 16 Creatinine 1.06 Glucose 210 H Calcium 9.1 Active Medications Apixaban (Eliquis) 5 mg PO BID VLAD Stop: 02/08/17 21:01 Last Admin: 08/10/16 09:04 Dose: 5 mg Aspirin (Aspirin Ec) 81 mg PO DAILY VLAD Stop: 02/09/17 09:01 Last Admin: 08/10/16 09:04 Dose: 81 mg Atorvastatin Calcium (Lipitor) 80 mg PO HS VLAD Stop: 02/08/17 21:01 Last Admin: 08/09/16 20:29 Dose: 80 mg Bumetanide (Bumex) 2 mg PO DAILY VLAD Stop: 02/08/17 09:01 Last Admin: 08/10/16 09:04 Dose: 2 mg Escitalopram Oxalate (Lexapro) 20 mg PO DAILY VLAD Stop: 02/08/17 09:01 Last Admin: 08/10/16 09:04 Dose: 20 mg Insulin Detemir (Levemir) 20 unit SQ BID [facility] Stop: 02/07/17 21:01 Last Admin: 08/10/16 09:12 Dose: 20 unit Insulin Human Lispro (Humalog) 0 units SQ HS VLAD PRN Reason: Protocol Stop: 02/07/17 21:01 Last Admin: 08/09/16 20:30 Dose: 3 units Insulin Human Lispro (Humalog) 0 units SQ TIDAC VLAD PRN Reason: Protocol Stop: 02/07/17 20:46 Last Admin: 08/10/16 09:10 Dose: 8 units Isosorbide Mononitrate (Imdur) 30 mg PO DAILY [facility] Stop: 02/08/17 09:01 Last Admin: 08/10/16 09:04 Dose: 30 mg Lisinopril (Zestril) 2.5 mg PO DAILY VLAD PRN Reason: Protocol Stop: 02/09/17 09:01 Last Admin: 08/10/16 09:04 Dose: 2.5 mg Metoprolol Succinate (Toprol Xl) 100 mg PO BID [facility] Stop: 02/09/17 09:01 Last Admin: 08/10/16 09:04 Dose: 100 mg Naloxone HCl (Narcan) 0.4 mg IVP Q2MIN PRN PRN Reason: Opioid Reversal Stop: 02/07/17 20:40 Potassium Chloride (Potassium Chloride) 10 meq PO DAILY VLAD Stop: 02/08/17 09:01 Last Admin: 08/10/16 09:04 Dose: 10 meq Spironolactone (Aldactone) 50 mg PO DAILY [facility] Stop: 02/08/17 09:01 Last Admin: 08/10/16 09:04 Dose: 50 mg - Imaging and Cardiology Echo: report reviewed Cardiac cath: report reviewed - EKG Interpretation EKG results cardiology: personally reviewed Consult Discharge Plan - Plan Referrals: Kandis Miles, TIRE LAYER [Primary Care Provider] -
--- NOTE | 2016-08-10 12:54 | Internal Med Progress Note ---
Date of Encounter: 08/10/16 Time of Encounter: 10:00 - Assessment and plan (1) Atrial flutter Current Visit: Yes Status: Acute Assessment and plan: Etiology is undetermined. TSH 1.943 on 06/10/16. Patient had a history of CAD and CHF. - We will continue beta janet for rate control. - Eliquis for anticoagulation per cardiology. - Continue closely monitoring - ADEEL/DCCV in AM per cardio Qualifiers: Atrial flutter type: unspecified Qualified Code(s): I48.92 - Unspecified atrial flutter (2) Morbid obesity Current Visit: Yes Status: Acute Assessment and plan: Need for lifestyle modification or bariatric surgery Qualifiers: Obesity type: due to excess calories Qualified Code(s): E66.01 - Morbid ( severe) obesity due to excess calories (3) Ischemic cardiomyopathy Current Visit: Yes Status: Acute Assessment and plan: LVEF 35-40%. S/P stent. Had another [facility] today. Continue ASA, beta janet, and statin. On Bumex and spironolactone. Will add low dose ACEI. Closely monitor blood pressure (4) Diabetes mellitus Current Visit: Yes Status: Chronic Assessment and plan: Continue basal and sliding scale insulin Qualifiers: Diabetes mellitus type: type 2 Diabetes mellitus complication status: with unspecified complications Diabetes mellitus snf insulin use: with snf use Qualified Code(s): E11.8 - Type 2 diabetes mellitus with unspecified complications; Z79.4 - FDC (current) use of insulin (5) Hypertension Current Visit: Yes Status: Chronic Assessment and plan: On blood pressure medication. Close monitor blood pressure. BP is not high now. Qualifiers: Hypertension type: essential hypertension Qualified Code(s): I10 - Essential (primary) hypertension (6) Hyperlipidemia Current Visit: Yes Status: Chronic Assessment and plan: On atorvastatin Qualifiers: Hyperlipidemia type: unspecified Qualified Code(s): E78.5 - Hyperlipidemia , unspecified (7) DVT prophylaxis Current Visit: Yes Status: Acute Assessment and plan: Patient is on eliquis. - Time Spent With Patient 25 - 35 minutes - Subjective Interval history: Patient is a 48-year-old male admitted for a flutter and exertional shortness of breath. His past medical history is significant for CHF, diabetes, hyperlipidemia, hypertension, CAD S/P stent. Patient was seen and examined. He is awake alert, oriented 3. Denies chest pain or shortness of breath when I saw him. Still A Flutter with HR 110-120. Cardio consult on case. Metoprolol dose increased. Plan for ADEEL/DCCV in AM. - Constitutional Vitals: Temp Pulse Resp BP Pulse Ox 98.0 F 119 16 145/105 94 08/10/16 11:00 08/10/16 11:00 08/10/16 11:00 08/10/16 11:00 08/10/16 11:00 General appearance: Present: cooperative, A&O X 3, morbidly obese, no acute distress, answers questions appropriately - Head Head exam: Present: atraumatic, normocephalic - Eye Eye exam: Present: PERRL, conjuntiva pink, sclera anicteric Pupils: Present: PERRL - Neck Neck exam general surgery: Present: supple, trachea midline. Absent: lymphadenopathy - Respiratory Respiratory exam: Present: CTAB. Absent: accessory muscle use, rales, rhonchi, wheezes - Cardiovascular Cardiovascular exam: Present: RRR, +S1, +S2, tachycardia. Absent: diastolic murmur, gallop, rubs, systolic murmur - GI/Abdominal GI/Abdominal exam: Present: normal bowel sounds, soft, no peritoneal signs. Absent: distended, tenderness - Extremities Exam Extremities exam: Present: warm, radial pulses palpable and symetrical. Absent : calf tenderness, cyanotic, pedal edema - Neurological Exam Neurological exam: Present: CN II-XII intact, oriented X3, no focal deficits. Absent: pronater drift, facial droop, speech deficit - Skin Skin exam: Present: dry, intact Internal Medicine: Result - Labs CBC & Chem 7: 08/10/16 04:08 08/10/16 04:08 Labs: Short CBC 08/10/16 Range/Units 04:08 WBC 10.0 (4.3-11.1) K/mcL Hgb 13.3 (12.9-16.9) g/dL Hct 40.0 (37.5-50.1) % Plt Count 176 (140-400) K/mcL Neutrophils # 6.7 (1.6-8.9) K/mcL BMP 08/10/16 04:08 Sodium 136 Potassium 4.7 H Chloride 102 Carbon Dioxide 28 BUN 16 Creatinine 1.06 Glucose 210 H Calcium 9.1 - ABG Interpretation ABG results: PT/INR, D-dimer PT 12.2 Seconds (9.4-12.1) H 08/09/16 09:03 Consult Discharge Plan - Plan Referrals: Kandis Miles, [employer] N[employer]ITIONIST [Primary Care Provider] -
[2016-08-11 04:32] LABS: Basophils # 0.1 K/mcL (0.0-0.2); Basophils % 0.5 %; Eosinophils # 0.2 K/mcL (0.0-0.6); Eosinophils % 1.9 %; Hematocrit 44.2 % (37.5-50.1); Hemoglobin 14.3 g/dL (12.9-16.9); Immature Granulocytes % 0.5 % (0-4); Lymphocytes # 2.2 K/mcL (0.6-4.6); Lymphocytes % 19.9 %; Mean Corpuscular HGB Conc 32.4 g/dL (31.6-35.5); Mean Corpuscular Hemoglobin 27.7 pg (28.0-33.3); Mean Corpuscular Volume 85.7 fL (83.0-100.0); Mean Platelet Volume 9.9 fL (9.4-12.4); Monocytes # 1.4 K/mcL (0.0-1.3); Monocytes % 12.3 %; Neutrophils # 7.1 K/mcL (1.6-8.9); Platelet Count 178 K/mcL (140-400); Red Blood Count 5.16 M/mcL (4.19-5.50); Red Cell Distribution Width 13.8 % (11.5-14.5); Segmented Neutrophils % 64.9 %
[2016-08-11 04:42] LABS: BUN/Creatinine Ratio 14 (6-26); Blood Urea Nitrogen 16 mg/dL (8-26); Calcium 9.4 mg/dL (8.6-10.8); Carbon Dioxide 26 mEq/L (19-29); Chloride 99 mEq/L (98-109); Glucose 225 mg/dL (70-99); Magnesium 1.7 mg/dL (1.6-2.6); Osmolality,Calculated 290 (280-300); Potassium 4.1 mEq/L (3.5-4.5); Sodium 136 mEq/L (136-145); eGFR For African Americans > 60 (> 60); eGFR For Non-African Americans > 60 (> 60)
[2016-08-11] MEDS: Insulin LISPRO 300 UNITS/3 ML VIAL SQ SCH ×3 (09:10→16:57)
--- NOTE | 2016-08-11 09:40 | Event Note ---
Date of Encounter: 08/11/16 Time of Encounter: 08:40 - Cardiology Event Note Seen and examined. 12 hour tele: avg CK=432 atrial flutter. HR 100-110's upon exam. Has been NPO since MN. Started on Eliquis 5 mg BID on 08/09/16. Plan for ADEEL guided CV today with Dr. Houston; patient verbalized understanding and agrees with plan. Further recommendations to follow.
[2016-08-11] MEDS ORDERED: 0.9 % Sodium Chloride 500 ML IVC ONE (10:09)
[2016-08-11] MEDS ORDERED: *HR* Midazolam HCl 2 MG/2 ML VIAL IVP PRN (10:09)
[2016-08-11] MEDS ORDERED: Tetracaine/Benzocaine/Butamben 200MG/SPRAY (100SPY/BOT) MM ONE (10:09)
[2016-08-11] MEDS ORDERED: *HR* Midazolam HCl 5 MG/5 ML VIAL IVP ONE ×4 (11:10→11:13)
[2016-08-11] MEDS: *HR* FentaNYL (PF) 100 MCG/2 ML VIAL IVP PRN ×4 (12:10→12:41)
--- NOTE | 2016-08-11 14:35 | ECHO - Doppler Report ---
Cardioversion with ADEEL Name: Jp Mcguire Date of Study: 08/11/2016 Date: 1965 Ht: 71.0in Medical Record#: [id number] Age: 50 Wt: 331.0lb Gender: Male BSA: 2.61 Order #: [id number] Location: [facility] Room #: 2NE25 Reading Physician: Susan Houston DO Process Safety Specialist: Lindsay Garrido RDCS, RVT Ordering Physician: Ellie Causey CNP Primary Physician: Kandis Miles CNP Indications: Arrhythmia Impressions: Successful DCCV of atrial flutter to NSR after 1 attempt. LA and IVÁN did not demonstrate thrombus during ADEEL. Patient was hypoxic during the procedure desaturating into the 80's, associated with snoring. Recommend evaluation for RUSS. Medication Given: Time Medication Dose Units Route 12:10 Versed 2 mg IV 12:10 Fentanyl 25 mcg IV 12:15 Versed 2 mg IV 12:20 Fentanyl 25 mcg IV 12:25 Fentanyl 25 mcg IV 12:35 Versed 2 mg IV 12:41 Fentanyl 25 mcg IV Findings: Study Quality * Technically adequate exam. ECG Findings * Flutter without ectopy Left Atrium * No thrombus present in LA. * LA appendage is normal in appearance without thrombus. * The LA appendage flow velocity is reduced. Procedure Summary: After explaining the risks, benefits, and alternatives of the procedure to the patient in detail and answering all questions to satisfaction, an informed consent was obtained in writing. The patient was NPO for the six hours prior to the procedure. The patient denied dysphagia, odynophagia, and loose teeth. The patient was monitored with periodic automated blood pressures and continuous pulse oximetry and telemetry. Continuous oxygen was administered by CO. The patient was placed in the full upright position and the posterior oropharynx was anesthetized as above. The patient was then placed in the left lateral decubitus position, the neck was flexed, and a bite block was placed in the patient's mouth. IV sedation was administered. Once adequate sedation was achieved, a well-lubricated anteflexed multipoint intraesophageal echocardiographic probe was inserted into the midline posterior oropharynx. The scope was advanced to the mid esophagus. Images were obtained from the mid esophagus. Images from the gastric globe were not obtained. The scope was then slowly withdrawn as the patient was continually suctioned. The patient tolerated the procedure well. Complications: No serious complications. Patient oxygen decreased into 80's requiring face mask ventilation. History: Hypertension Diabetes Hypercholesteremia Family History of CAD History of CAD/PTCA Myocardial Infarction Congestive Heart Failure Previous Echo08/09/2016 BP 122 / 89 Updated by Susan Houston on 08/11/2016 2:25:24 PM electronically signed on 08/11/2016 2:29:00 PM with status of Final Wall Motion [place]: 1=Normal, 2=Hypokinesis, 3=Akinesis, 4=Dyskinesis, 5=Aneurysmal, 6=Hyperkinetic, X=Not Visualized (Blank)=Missing
[2016-08-11] MEDS: APIXABAN 5 MG TABLET PO SCH ×2 (14:47→17:49)
[2016-08-11] MEDS: Insulin DETEMIR 100 UNIT/ML X5UNITS SQ SCH (14:47)
[2016-08-11] MEDS: Aspirin Enteric Coated 81 MG Tablet PO SCH (14:47)
[2016-08-11] MEDS: Isosorbide MONOnitrate (24 HR) 30 MG TAB.ER.24H PO SCH (14:47)
[2016-08-11] MEDS: Metoprolol XL (24 HR) Succ 50 MG TAB.ER.24H PO SCH ×2 (14:47→17:49)
[2016-08-11] MEDS: Bumetanide 1 MG TABLET PO SCH (14:47)
--- NOTE | 2016-08-11 14:47 | Event Note ---
Date of Encounter: 08/11/16 Time of Encounter: 14:30 - Cardiology Event Note Seen and examined. No LA/IVÁN thrombus identied on ADEEL. s/p successful DCCV to NSR with 175 J x1. HR 80-90's SR upon exam. Continue Toprol XL 100 mg BID. Continue Eliquis 5 mg BID for AC--30 day free savings card provided to patient. Continue betablocker, ACEi, and diuretic for reduced LVEF. Plavix stopped s/p LHC--stable CAD with patent stents. No further inpatient recommendations. Follow-up with Dr. Houston in 2-3 weeks, appointment will be coordinated. Cardiology will sign-off, please call with questions.
[2016-08-11 16:05] VITALS: BP 157/99
--- NOTE | 2016-08-11 16:07 | Discharge Summary ---
Date of Encounter: 08/11/16 Time of Encounter: 15:40 - Discharge Diagnosis (1) Atrial flutter Priority: Primary Status: Acute Qualifiers: Atrial flutter type: unspecified Qualified Code(s): I48.92 - Unspecified atrial flutter (2) Morbid obesity Priority: Secondary Status: Acute Qualifiers: Obesity type: due to excess calories Qualified Code(s): E66.01 - Morbid ( severe) obesity due to excess calories (3) Ischemic cardiomyopathy Priority: Secondary Status: Acute (4) Diabetes mellitus Priority: Secondary Status: Chronic Qualifiers: Diabetes mellitus type: type 2 Diabetes mellitus complication status: with unspecified complications Diabetes mellitus grinder lap insulin use: with retirement use Qualified Code(s): E11.8 - Type 2 diabetes mellitus with unspecified complications; Z79.4 - alf (current) use of insulin (5) Hypertension Priority: Secondary Status: Chronic Qualifiers: Hypertension type: essential hypertension Qualified Code(s): I10 - Essential (primary) hypertension (6) Hyperlipidemia Priority: Secondary Status: Chronic Qualifiers: Hyperlipidemia type: unspecified Qualified Code(s): E78.5 - Hyperlipidemia , unspecified (7) DVT prophylaxis Priority: Secondary Status: Acute - Discharge Medications Prescriptions: Apixaban [Eliquis] 5 mg PO BID #60 tablet Aspirin Enteric Coated [Aspirin EC] 81 mg PO DAILY #30 tablet. Atorvastatin [Lipitor] 80 mg PO HS #60 tablet Lisinopril [Zestril] 2.5 mg PO DAILY #60 tablet Metoprolol XL (24 HR) Succ [Toprol Xl] 100 mg PO BID #60 tab.er.24h Home Medications: Insulin DETEMIR [Levemir Flextouch] 30 unit SQ BID 01/06/16 [History] Isosorbide MONOnitrate [Isosorbide Mononitrate] 30 mg PO DAILY 01/06/16 [History ] Linagliptin [Tradjenta] 5 mg PO DAILY 01/06/16 [History] Magnesium Oxide [Mag-Ox] 400 mg PO DAILY 01/06/16 [History] Metformin [Glucophage] 500 mg PO BIDWM 01/06/16 [History] Potassium Chloride [Klor-Con Sprinkle] 10 meq PO DAILY 01/06/16 [History] Spironolactone [Aldactone] 50 mg PO DAILY 01/06/16 [History] Escitalopram [Lexapro] 20 mg PO DAILY 08/08/16 [History] GlyBURIDE 10 mg PO DAILY 08/08/16 [History] HYDROcodone/Acet 5/325 mg [[place] 5-325 mg] 1 tab PO Q8H PRN 08/08/16 [History] Loratadine 10 mg PO DAILY 08/08/16 [History] Montelukast [Singulair] 10 mg PO DAILY 08/08/16 [History] Tizanidine HCl 2 mg PO TID PRN 08/08/16 [History] Bumetanide [Bumex] 2 mg PO DAILY 08/09/16 [History] Gabapentin [Neurontin] 300 mg PO TID 08/09/16 [History] Apixaban [Eliquis] 5 mg PO BID #60 tablet 08/11/16 [Rx] Aspirin Enteric Coated [Aspirin EC] 81 mg PO DAILY #30 tablet. 08/11/16 [Rx] Atorvastatin [Lipitor] 80 mg PO HS #60 tablet 08/11/16 [Rx] Lisinopril [Zestril] 2.5 mg PO DAILY #60 tablet 08/11/16 [Rx] Metoprolol XL (24 HR) Succ [Toprol Xl] 100 mg PO BID #60 tab.er.24h 08/11/16 [Rx ] Allergies/Adverse Reactions: Allergies No Known Allergies Allergy (Verified 08/09/16 10:27) Procedures/tests Complete & Pending: Procedures Performed prior 72 hours Category Date Time Status CL Cardiac Catheterization [CL] Routine Octave Board Assembler 08/09/16 09:00 Completed ECG 12 lead ECG [ECG] Routine Y 08/11/16 10:46 Completed ECG 12 lead ECG [ECG] Routine Y 08/11/16 12:48 Completed EV echocardiogram w enhance Routine Y 08/08/16 20:42 Completed EV jean guided cardioversion Routine Y 08/11/16 08:00 Completed Date of admission: 08/11/16 13:45 Primary care physician: Kandis Miles CNP Consults: 08/08/16 22:20 Consult to Cardiology [CONS] Routine Comment: Consulting Provider: Cardiology Rhina Reason for Consult: Admitted for new onset A-flutter. But NST on 07/30/16 showed reversible ischemia. Appreciate evaluation of possible LHC during current admission. Also appreciate anticoagulation recommendation if pt gets LHC. Call Completed: Yes Discharging clinician: Vik Chao Anticipated date of discharge: 08/11/16 - Patient Status Disposition: Home, Self-Care Condition: Good Functional capacity at discharge: independent ambulation Overall status at discharge: patient is not back to baseline - Discharge Instructions Follow Up With: Kandis Miles, VEGETABLE FARMER [Primary Care Provider] - - Diet and Activity Activity: increase activity as tolerated Diet: diabetic diet Interval History: Mr. Mcguire is a 50 year old morbidly obese male with PMH of CHF (likely systolic ), DM, HTN, hyperlipidemia and history of GA s/p multiple stents in 2011 & 2013. Patient had recent nuclear stress test done on 07/30/16, which suggests inferior infarct with significant reversible romelia-infarct ischemia involving distal inferior, inferolateral & anterolateral pandey & apex with gated EF 35%. Patient was in [facility] today to discuss the result but found to have A-flutter on EKG. Patient was sent to [place] ED where he got one dose of Lopressor 50 mg PO and then transferred to [facility] for further evaluation and management. Upon encounter, patient denies current chest pain/discomfort, dyspnea, diaphoresis, palpitation, lightheadedness, syncope. But patient reports having worsening fatigue and exertional chest pain for past one month. He describes the left-sided chest pain as pressure-like radiating to the left scapula. It's aggravated by exertion and alleviated by rest. It's associated with shortness of breath, diaphoresis and nausea. Patient reports weight gain of 7 lb over past 2 weeks but states his bilateral lower extremity edema has been well-controlled. Per patient, Dr. Houston had discussed with him regarding LHC and he agrees to get that done. Patient states he is never diagnosed with sleep apnea but admits significant snoring when sleeping. Patient denies home oxygen use. Patient is full code. Hospital course: Mr. Mcguire is a 50 year old male admitted for positive stress test and new onset A. flutter. Patient was placed on continuous cardiac monitoring. Cardiac consult was called and saw patient. Patient had LHC, no stenting. Patient had JEAN and cardiac conversion but cardiology today. After procedure, his heart rate to convert to sinus. Cardiology cleared patient to discharge home. I saw and examined the patient today. He is awake alert and oriented 3. Vitals are stable. Heart rate 80 to 90s, sinus rhythm. Will discharge patient home on eliquis, beta janet, CAMRON inhibitor, aspirin, starting, and diuretics. Patient will follow-up with cardiology as outpatient. - Time Spent with Patient Total time spent providing and/or coordinating discharge services: Greater than 30 minutes - Constitutional Vitals: Temp Pulse Resp BP Pulse Ox 97.4 F L 103 14 122/89 94 08/11/16 10:55 08/11/16 10:55 08/11/16 10:55 08/11/16 10:55 08/11/16 10:55 General appearance: Present: cooperative, A&O X 3, morbidly obese, no acute distress, answers questions appropriately - Head Head exam: Present: atraumatic, normocephalic - Eye Eye exam: Present: PERRL, conjuntiva pink, sclera anicteric Pupils: Present: PERRL - Neck Neck exam general surgery: Present: supple, trachea midline. Absent: lymphadenopathy - Respiratory Respiratory exam: Present: CTAB. Absent: accessory muscle use, rales, rhonchi, wheezes - Cardiovascular Cardiovascular exam: Present: RRR, +S1, +S2. Absent: diastolic murmur, gallop, rubs, systolic murmur - GI/Abdominal GI/Abdominal exam: Present: normal bowel sounds, soft, no peritoneal signs. Absent: distended, tenderness - Extremities Exam Extremities exam: Present: warm, radial pulses palpable and symetrical. Absent : calf tenderness, cyanotic, pedal edema - Neurological Exam Neurological exam: Present: CN II-XII intact, oriented X3, no focal deficits. Absent: pronater drift, facial droop, speech deficit - Skin Skin exam: Present: dry, intact
--- NOTE | 2016-08-12 07:05 | Electrocardiograph Report ---
[address] [place] [address] Test Date: 2016-08-11 Pat Name: Jp Mcguire Department: 101 Room: 2NE25 Gender: M Production Crew Supervisor: MONICA : 1965 Requested By: Vik Chao Order Number: [id number] Reading MD: Dino Clay MD Measurements Intervals [place] Rate: 83 P: -19 PA: 196 QRS: -75 QRSD: 107 T: 72 QT: 403 QTc: 443 Interpretive Statements SINUS RHYTHM LEFT ANTERIOR FASCICULAR BLOCK ANTEROLATERAL MYOCARDIAL INFARCTION, OF INDETERMINATE AGE Electronically Signed On 08-12-2016 7:03:39 EDT by Dino Clay MD
--- NOTE | 2016-08-12 07:27 | Electrocardiograph Report ---
[address] [place], [place] [address] Test Date: 2016-08-11 Pat Name: Jp Mcguire Department: 101 Room: 2NE25 Gender: M Distribution Manager: : 1965 Requested By: Vik Chao Order Number: [id number] Reading MD: Dino Clay MD Measurements Intervals [place] Rate: 104 P: DE: 0 QRS: -75 QRSD: 118 T: 101 QT: 352 QTc: 413 Interpretive Statements ATRIAL FIBRILLATION WITH RAPID VENTRICULAR RESPONSE LEFT ANTERIOR FASCICULAR BLOCK ANTEROLATERAL MYOCARDIAL INFARCTION, PROBABLY RECENT Electronically Signed On 08-12-2016 7:25:57 EDT by Dino Clay MD
== END 2016-08-11 17:59 | disposition home or self-care (01) | DRG 287 ==
LOC: 2NENU → SUATTDRO 19:14
PROVIDERS: ADMIT Internal Medicine Endocrinology, Diabetes & Metabolism; ATTEND Internal Medicine

== ENCOUNTER 2018-07-27 15:57 | Inpatient (IN) ==
[2018-07-27] MEDS ORDERED: 0.9 % Sodium Chloride 2,000 ML ONE (16:25)
[2018-07-27] MEDS ORDERED: *HR* Atropine Sulfate 1 MG/10 ML SYRINGE IVP ONE (16:28)
[2018-07-27] MEDS ORDERED: 0.9 % Sodium Chloride 500 ML IVC ONE (16:33)
--- NOTE | 2018-07-27 16:41 | Emergency Department Note ---
Disposition Clinical Impression: Third degree heart block Atrial fibrillation Qualifiers: Atrial fibrillation type: paroxysmal Qualified Code(s): I48.0 - Paroxysmal atr ial fibrillation Disposition: Admitted As Inpatient Condition: Critical Referrals: Kandis Miles CNP [Primary Care Provider] - Forms: ED Satisfaction Letter Time of Disposition: 17:28 Arrhythmia/Palpitations HPI - General Chief Complaint: ED Arrhythmia/Palpitations Stated Complaint: "abnormal ekg" Time Seen by Provider: 07/27/18 16:05 Source: patient, family Mode of arrival: ambulatory Limitations: no limitations Nursing Notes Reviewed: Yes Vital Signs Reviewed: Yes - History of Present Illness HPI Narrative: 52-year-old male with history of atrial fibrillation on Eliquis, history of hypertension, CHF, hyperlipidemia arrives to the emergency department with low heart rate and generalized weakness. The patient admits to one episode of nausea and vomiting. The patient was immediately brought back secondary to hypotension. His initial systolic blood pressure was 69. Repeat blood pressure was 84 systolic. The patient is mentating appropriately. His heart rate is noted to be at 39 beats for minute. The patient states that he had a recent cardioversion roughly 1 week ago for the A. fib and he went back to normal sinus rhythm. Patient denies any other complaints at this time. He is lucid and answering questions appropriate. He is mentating appropriately. - Related Data Home Medications Medication Instructions Recorded Confirmed Insulin DETEMIR [Levemir Flextouch] 42 unit SQ BID 01/06/16 07/16/18 Linagliptin [Tradjenta] 5 mg PO DAILY 01/06/16 07/16/18 Magnesium Oxide [Mag-Ox] 400 mg PO DAILY 01/06/16 07/16/18 Potassium Chloride [Klor-Con 10 meq PO DAILY 01/06/16 07/16/18 Sprinkle] Spironolactone [Aldactone] 50 mg PO DAILY 01/06/16 07/16/18 metFORMIN [Glucophage] 500 mg PO BIDWM 01/06/16 07/16/18 Escitalopram [Lexapro] 20 mg PO DAILY 08/08/16 07/16/18 glyBURIDE [GlyBURIDE] 10 mg PO BID 08/08/16 07/16/18 Gabapentin [Neurontin] 300 mg PO BID 08/09/16 07/16/18 Furosemide [Lasix] 20 mg PO DAILY 07/16/18 07/16/18 Insulin Aspart Prot/Insuln Asp 20 unit SQ 0700 07/16/18 07/16/18 [Novolog Mix 70-30 Flexpen Syrn] Insulin NPH Hum/Reg Insulin Hm 30 unit SQ 1200,1500 07/16/18 07/16/18 [Novolin 70-30 Flexpen] Isosorbide MONOnitrate (24 HR) 15 mg PO DAILY 07/16/18 07/16/18 [Imdur] Metoprolol [Lopressor] 25 mg PO BID 07/16/18 07/16/18 Nitroglycerin [Nitrostat] 0.4 mg SL Q5MIN PRN 07/16/18 07/16/18 Simvastatin 80 mg PO HS 07/16/18 07/16/18 Previous Rx's Medication Instructions Recorded Apixaban [Eliquis] 5 mg PO BID #60 tablet 08/11/16 Aspirin Enteric Coated [Aspirin EC] 81 mg PO DAILY #30 tablet. 08/11/16 Lisinopril [Zestril] 2.5 mg PO DAILY #60 tablet 08/11/16 Diltiazem CD (24hr) [Cardizem CD] 240 mg PO DAILY 30 Days #30 07/19/18 cap.er.24h Allergies Allergy/AdvReac Type Severity Reaction Status Date / Time No Known Allergies Allergy Verified 07/16/18 19:47 All systems ED: reviewed and negative except as stated. Constitutional: Denies: fever, chills, weakness ENT ED: Denies: dysphagia Cardiovascular: Reports: palpitations. Denies: chest pain, dyspnea on exertion, edema, syncope Respiratory: Denies: cough, dyspnea, sputum production Gastrointestinal: Reports: nausea, vomiting. Denies: abdominal pain, diarrhea, constipation, hematemesis, melena, hematochezia Genitourinary: Denies: urgency, dysuria Musculoskeletal: Denies: back pain Integumentary: Denies: rash Neurological: Reports: weakness. Denies: headache Past Medical History - Past Medical History Attestation: Yes The following information was validated with the patient. Source: patient, old records reviewed Medical history: Reports: atrial fibrillation, CHF, coronary artery disease, diabetes, hyperlipidemia, hypertension, myocardial infarction, venous stasis Surgical history: Reports: angioplasty/stent, cataract, other Psychiatric history: Reports: no psych history - Social History Smoking Status: Never smoker Smokeless Tobacco Status: No Alcohol use: Reports: none Drug use: Reports: none Physical Exam - General Limitations: no limitations General appearance: alert, in no apparent distress - Head Head exam: atraumatic, normocephalic, normal inspection - Eye Eye exam: Present: normal appearance, PERRL, EOMI - ENT ENT exam: normal exam, normal oropharynx, mucous membranes moist - Neck Neck exam: Present: normal inspection, full ROM, trachea midline - Chest Chest inspection: Present: normal inspection, symmetric chest wall rise - Respiratory Respiratory exam: Present: normal lung sounds bilaterally - Cardiovascular Cardiovascular exam: Present: bradycardia, irregular rhythm, normal heart sounds - Abdominal Exam Abdominal exam: Present: soft, Non-Tender. Absent: tenderness, distention, guarding, rebound, rigidity - Extremities Exam Extremities exam: Present: normal inspection, full ROM. Absent: tenderness, pedal edema - Neurological Exam Neurological exam: Present: alert, oriented X3, CN II-XII intact, normal gait - Skin Skin exam: Present: warm, dry, intact, normal color Course - Consultations Consultation #1: I spoke with on-call interventional cardiology, Dr. Valencia who stated that given the patient's appropriate mentation and relative STABILITY despite mild hypot ension, we will monitor the patient works the patient appeared the emergency department and admit the patient to the hospitalist and likely have the AV scott blockade from the metoprolol where off. We will continue to monitor the patient and if he begins to express any mental status changes we will begin to transfuse lipase patient and called back cardiology per recommendation. No further questi ons or concerns are noted at this time. Time: 16:43 Vital Signs Temperature 97.4 F L 07/27/18 16:00 Pulse Rate 42 07/27/18 16:00 Respiratory Rate 16 07/27/18 16:00 Blood Pressure 83/49 07/27/18 16:00 O2 Sat by Pulse Oximetry 93 07/27/18 16:00 Temperature 97.4 F L 07/27/18 16:00 Pulse Rate 66 07/27/18 17:10 Respiratory Rate 18 07/27/18 17:10 Blood Pressure 82/36 07/27/18 17:10 O2 Sat by Pulse Oximetry 93 07/27/18 17:10 Oxygen Delivery Oxygen Delivery Nasal Cannula Arrhythmia/Palpitations - [facility] Narrative Medical decision making narrative: Patient's evaluation in the emergency department demonstrates findings concernin g for complete heart block. The patient was started on dopamine drip at 5. The patient was also administered half a milligram of atropine. Patient's heart rate has now come up into the mid 60s. His pressures remained stable despite a lower map. His maps of remained in the 55-62 range. The patient continues mentating appropriately. We consulted cardiology who stated that the patient becomes altered in any way that they will likely perform pacer. The patient will be admitted to the hospitalist at this time. Heart rate and blood pressures have improved once on Dopamine. - Medical Records Medical records reviewed: Yes I reviewed the patient's medical records. - Lab Data Lab results reviewed: Yes I reviewed the patient's lab results. Result diagrams: 07/27/18 16:32 07/27/18 16:32 Lab Results 07/27/18 07/27/18 07/27/18 Range/Units 16:32 16:32 16:32 WBC 17.6 H (4.3-11.1) K/mcL RBC 4.83 (4.19-5.50) M/mcL Hgb 14.1 (12.9-16.9) g/dL Hct 42.2 (37.5-50.1) % MCV 87.4 (83.0-100.0) fL MCH 29.2 (28.0-33.3) pg MCHC 33.4 (31.6-35.5) g/dL RDW 16.5 H (11.5-14.5) % Plt Count 277 (140-400) K/mcL MPV 10.3 (9.4-12.4) fL Immature Gran % 1.0 (0-4) % Seg Neutrophils % 59.2 % Lymphocytes % 24.4 % Monocytes % 11.8 % Eosinophils % 2.7 % Basophils % 0.9 % Neutrophils # 10.4 H (1.6-8.9) K/mcL Lymphocytes # 4.3 (0.6-4.6) K/mcL Monocytes # 2.1 H (0.0-1.3) K/mcL Eosinophils # 0.5 (0.0-0.6) K/mcL Basophils # 0.2 (0.0-0.2) K/mcL PT 18.6 H (9.4-12.1) Seconds INR 1.7 APTT 35.6 (26.0-36.0) Seconds Sodium 128 L (136-145) mEq/L Potassium 4.4 (3.5-5.1) mEq/L Chloride 90 L (98-107) mEq/L Carbon Dioxide 24 (23-29) mEq/L BUN 25 H (6-20) mg/dL Creatinine 1.79 H (0.70-1.30) mg/dL Est GFR ( Amer) 48 L (> 60) Est GFR (Non-Af Amer) 40 L (> 60) BUN/Creatinine Ratio 14 (6-26) Glucose 421 H (70-105) mg/dL Calculated Osmolality 288 (280-300) Calcium 9.1 (8.6-10.3) mg/dL Magnesium 1.7 (1.6-2.6) mg/dL Troponin I < 0.03 (< 0.04) ng/mL - Radiology Data Radiology results reviewed: Yes I reviewed the patient's radiology results. Chest X-Ray 07/27/18 16:28 IMPRESSION: No acute cardiopulmonary process. D/ / Russ Ulrich MD / Russ Ulrich MD Interpreting Provider: Russ Ulrich MD - EKG Data EKG attestation: Yes I reviewed and interpreted this EKG. EKG results narrative: Heart rate 39 beats for minute. Atrial fibrillation with concern for complete AV scott blockade. No ST elevation or ST depression noted. Attestation Statement - Attestation Attestation: I examined this patient and my medical decision-making was reviewed with the Resident Physician. I agree with the documented findings, disposition and treatment plan as described except to the extent set forth below. Patient presented emergency department with chief complaint of low heart rate is. Patient found to be in A. fib with a bradycardic rhythm in the 30s blood pressures in the 70s and 80s, however patient reports baseline blood pressure is in the 90s and has had evaluations for this. He reports he was recently hospitalized and cardioverted for atrial fibrillation. Patient denies any chest pain or CVAT shortness of breath he denies syncope or near-syncope he does not worsen mild generalized weakness, no dental status changes no confusion or speech difficulty. Patient had IVs established, EKG confirms A. fib bradycardic no evidence of ischemia and no evidence of hyperkalemia. Laboratory studies were then except limits. Upon arrival IVs established. Monitor placed on oxygen and placed on the cardiac pacer pads, was given 0.5 mg of atropine, and started on a low-dose dopamine drip at 5. Cardiology was also immediately contacted, cardiology did not feel there was indication for acutemedical pacemaker, transvenous, or otherwise, would like to wait wearing off the patient's beta janet, have the patient admitted to the ICU, with consultation with cardiology, with admission by the medicine service. With small bolus of IV fluids, and dopamine, heart rate improved to the 60s, blood pressure improved into the low 100s. Appeared to now be in a sinus rhythm. Repeat EKG was ordered. Hospitals contacted for admission. Hospitalist limit this patient for further management to the ICU. Total critical care time was provided by myself excluding any procedures performed was 35 minutes.
[2018-07-27 16:47] LABS: Basophils # 0.2 K/mcL (0.0-0.2); Basophils % 0.9 %; Eosinophils # 0.5 K/mcL (0.0-0.6); Eosinophils % 2.7 %; Hematocrit 42.2 % (37.5-50.1); Hemoglobin 14.1 g/dL (12.9-16.9); Lymphocytes # 4.3 K/mcL (0.6-4.6); Lymphocytes % 24.4 %; Mean Corpuscular HGB Conc 33.4 g/dL (31.6-35.5); Mean Corpuscular Hemoglobin 29.2 pg (28.0-33.3); Mean Corpuscular Volume 87.4 fL (83.0-100.0); Mean Platelet Volume 10.3 fL (9.4-12.4); Monocytes # 2.1 K/mcL (0.0-1.3); Monocytes % 11.8 %; Neutrophils # 10.4 K/mcL (1.6-8.9); Platelet Count 277 K/mcL (140-400); Red Blood Count 4.83 M/mcL (4.19-5.50); Red Cell Distribution Width 16.5 % (11.5-14.5); Segmented Neutrophils % 59.2 %
[2018-07-27 16:53] LABS: INR 1.7; Prothrombin Time 18.6 Seconds (9.4-12.1)
[2018-07-27 16:56] LABS: Activated Partial Thrombo Time 35.6 Seconds (26.0-36.0)
[2018-07-27 17:05] LABS: BUN/Creatinine Ratio 14 (6-26); Blood Urea Nitrogen 25 mg/dL (6-20); Calcium 9.1 mg/dL (8.6-10.3); Carbon Dioxide 24 mEq/L (23-29); Chloride 90 mEq/L (98-107); Glucose 421 mg/dL (70-105); Magnesium 1.7 mg/dL (1.6-2.6); Osmolality,Calculated 288 (280-300); Potassium 4.4 mEq/L (3.5-5.1); Sodium 128 mEq/L (136-145); eGFR For Non-African Americans 40 (> 60)
[2018-07-27 17:06] LABS: Troponin I < 0.03 ng/mL (< 0.04)
[2018-07-27] MEDS ORDERED: Ondansetron 4 MG/2 ML VIAL IVP ONE (17:13)
[2018-07-27] MEDS ORDERED: Metoclopramide 10 MG/10 ML UD.LIQ PO STA (17:35)
[2018-07-27] MEDS ORDERED: Insulin Regular, Human 100 UNIT/ML SQ ONE (17:37)
--- NOTE | 2018-07-27 17:39 | Internal Med History&Physical ---
Date of Encounter: 07/27/18 Time of Encounter: 18:04 Internal Medicine - H&P: HPI Chief complaint: Low heart rate, intractable nausea and vomiting Admitted From: Emergency Dept Plans for Post Hospital Care: Home History of present illness: Mr. Mcguire is a 52 year old male patient with a history of atrial flutter/fibrillation, CHF, coronary artery disease, diabetes, hypertension and hyperlipidemia who was discharged from the hospital one week back following an episode of 11/29 with RVR requiring DC cardioversion. At that time he had been placed on Cardizem 240 mg daily in addition to Lopressor 25 mg twice a day. Russ lantigua states that his been having low blood pressure for the past 3-4 weeks. He was seen in his primary care provider's office today for follow-up and at that time was noted to have a low heart rate of 40. As such she was sent to the ER. On his way here patient developed intractable nausea and vomiting. He is continued to vomit all through his stay in the ER and even during my interview. He did receive Zofran without any improvement in his nausea. He denies any abdominal pain. He reports that his last bowel movement was yesterday. In the ER, patient was noted to be bradycardic. He was started on IV dopamine after he received atropine. He is presently on 5 of dopamine. Past Med Surg Social Fam HX - Past Medical History Medical history: atrial fibrillation, CHF, coronary artery disease, diabetes, hyperlipidemia, hypertension, myocardial infarction, venous stasis Psychiatric history: no psych history - Past Surgical History Surgical History: angioplasty/stent, cataract, other Additional surgical history: heart stents, PCI with MUNA OM1 2013 - Social History Smoking Status: Never smoker Smokeless Tobacco Status: No Alcohol use: none Drug use: none - Family History Father Living Status: Hx Family Cardiac Disorders: Yes (unknown etiology) Hx Family Endocrine Disorder: Yes (DMII) Hx Family Neurologic Disorders: Yes (CVA) Mother Living Status: Hx Family Cardiac Disorders: Yes (HTN) Hx Family Endocrine Disorder: Yes (DM) Hx Family Neurologic Disorders: Yes (CVA, dementia) Internal Medicine - H&P: Meds Insulin DETEMIR [Levemir Flextouch] 42 unit SQ BID 01/06/16 [History] Linagliptin [Tradjenta] 5 mg PO DAILY 01/06/16 [History] Magnesium Oxide [Mag-Ox] 400 mg PO DAILY 01/06/16 [History] Potassium Chloride [Klor-Con Sprinkle] 10 meq PO DAILY 01/06/16 [History] Spironolactone [Aldactone] 50 mg PO DAILY 01/06/16 [History] metFORMIN [Glucophage] 500 mg PO BIDWM 01/06/16 [History] Escitalopram [Lexapro] 20 mg PO DAILY 08/08/16 [History] glyBURIDE [GlyBURIDE] 10 mg PO BID 08/08/16 [History] Gabapentin [Neurontin] 300 mg PO BID 08/09/16 [History] Apixaban [Eliquis] 5 mg PO BID #60 tablet 08/11/16 [Rx] Aspirin Enteric Coated [Aspirin EC] 81 mg PO DAILY #30 tablet.dr 08/11/16 [Rx] Lisinopril [Zestril] 2.5 mg PO DAILY #60 tablet 08/11/16 [Rx] Furosemide [Lasix] 20 mg PO DAILY 07/16/18 [History] Insulin Aspart Prot/Insuln Asp [Novolog Mix 70-30 Flexpen Syrn] 20 unit SQ 0700 07/16/18 [History] Insulin NPH Hum/Reg Insulin Hm [Novolin 70-30 Flexpen] 30 unit SQ 1200,1500 07/16/18 [History] Isosorbide MONOnitrate (24 HR) [Imdur] 15 mg PO DAILY 07/16/18 [History] Metoprolol [Lopressor] 25 mg PO BID 07/16/18 [History] Nitroglycerin [Nitrostat] 0.4 mg SL Q5MIN PRN 07/16/18 [History] Simvastatin 80 mg PO HS 07/16/18 [History] Diltiazem CD (24hr) [Cardizem CD] 240 mg PO DAILY 30 Days #30 cap.er.24h 9 [Rx] Allergy/AdvReac Type Severity Reaction Status Date / Time No Known Allergies Allergy Verified 07/16/18 19:47 All Systems PM: A 10-system review of systems was performed and is negative for pertinent findings except as documented above in the HPI. - Constitutional Constitutional: no chills, no fever(s), no night sweats - EENT Eyes: no change in vision, no discharge, no pain, no photophobia Ears: no ear discharge, no ear pain, no tinnitus Nose, mouth and throat: no dysphagia, no nasal discharge, no neck pain, no sore throat - Cardiovascular Cardiovascular ROS IM: no chest pain, no diaphoresis, no dyspnea, no lightheadedness, no palpitations, no syncope - Respiratory Respiratory: no cough, no dyspnea, no wheezing, no excessive phlegm production - Gastrointestinal Gastrointestinal: nausea, vomiting, no abdominal pain, no diarrhea, no hematemesis, no hematochezia, no melena - Musculoskeletal Musculoskeletal ROS IM: no numbness, no tingling - Neurological Neurological ROS: no confusion, no convulsions, no focal weakness, no numbness, no tingling, no tremor(s) - Hematologic/Lymphatic Hematologic/Lymphatic: no easy bruising - Constitutional Vitals: Temp Pulse Resp BP Pulse Ox 97.4 F L 66 18 82/36 93 07/27/18 16:00 07/27/18 17:10 07/27/18 17:10 07/27/18 17:10 07/27/18 17:10 General appearance: Present: cooperative, A&O X 3, severe distress, answers questions appropriately Exam: General: Patient is alert, severe distress, oriented x 3 Head: atraumatic, normocephalic, ENT: Mucous membranes moist Neck: normal inspection, trachea midline, full ROM, no carotid bruits Chest: normal inspection, symmetric chest rise Respiratory: Good respiratory effort. Normal breath sounds. No wheezing or crackles. Cardiovascular: Regular rate and rhythm. s1 and s2 normal No clicks, rubs, gallops, or murmurs. No pedal edema Abdomen: Abdomen is soft, nontender. Bowel sounds are present Musculoskeletal: Spontaneously moving all extremities Skin: warm, dry, intact. Neuro: Alert oriented x 3 normal cranial nerves, no focal deficits Psych: Patient's affect is normal Internal Med - H&P Results - Labs CBC & Chem 7: 07/27/18 16:32 07/27/18 16:32 Labs: Short CBC 07/27/18 Range/Units 16:32 WBC 17.6 H (4.3-11.1) K/mcL Hgb 14.1 (12.9-16.9) g/dL Hct 42.2 (37.5-50.1) % Plt Count 277 (140-400) K/mcL Neutrophils # 10.4 H (1.6-8.9) K/mcL BMP 07/27/18 16:32 Sodium 128 L Potassium 4.4 Chloride 90 L Carbon Dioxide 24 BUN 25 H Creatinine 1.79 H Glucose 421 H Calcium 9.1 Cardiac Enzymes 07/27/18 Range/Units 16:32 Troponin I < 0.03 (< 0.04) ng/mL - EKG Data -: EKG Interpreted by Myself - EKG Data EKG comments: 07/27/18 18:20 bradycardia with concern for third degree heart block - Impressions ITS Impressions Chest X-Ray 07/27/18 16:28 IMPRESSION: No acute cardiopulmonary process. D/ / Russ Ulrich MD / Russ Ulrich MD Interpreting Provider: Russ Ulrich MD - Assessment and Plan (1) Third degree heart block Current Visit: Yes Status: Acute Assessment and plan: Initial EKG suggested possible third-degree AV block. Cardiology consulted. Will admit patient to ICU. Continue IV dopamine. Monitor heart rate closely. Hold negative chronotropic agents. Patient was on Lopressor 25 twice a day and Cardizem 240 mg daily. We will hold both of these medications. (2) Intractable nausea and vomiting Current Visit: Yes Status: Acute Assessment and plan: Patient having intractable nausea and vomiting. May have underlying diabetic gastroparesis. Will obtain CT of the abdomen and pelvis once patient's heart rate and blood pressure stabilizes. Treat symptomatically with antiemetics. Qualifiers: Vomiting type: cyclical vomiting Qualified Code(s): G43.A1 - Cyclical vomiting, intractable (3) Atrial fibrillation Current Visit: Yes Status: Chronic Assessment and plan: Patient with history of atrial fibrillation. Status post DC cardioversion last week. Initially EKG showed possible third degree AV block. Presently patient is in sinus rhythm while receiving dopamine. Qualifiers: Atrial fibrillation type: paroxysmal Qualified Code(s): I48.0 - Paroxysmal atrial fibrillation (4) Chronic systolic (congestive) heart failure Current Visit: Yes Status: Chronic Assessment and plan: Patient with history of chronic systolic congestive heart failure. Presently he does not have any pedal edema. He does continue to have emesis and his renal function is abnormal. We will hold off diuretics. (5) Diabetes mellitus Current Visit: Yes Status: Chronic Assessment and plan: Patient with hyperglycemia. Blood glucose of 421. Will place him on insulin. Monitor blood sugars closely. He did receive glucagon to reverse beta blockade in the ER. If needed, patient may also be placed on intravenous insulin drip overnight to control blood sugars. Qualifiers: Diabetes mellitus type: type 2 Diabetes mellitus watermaster insulin use: with skilled nursing use Diabetes mellitus complication status: with hyperglycemia Qualified Code(s): E11.65 - Type 2 diabetes mellitus with hyperglycemia; Z79.4 - [facility] (current) use of insulin (6) Hypertension Current Visit: Yes Status: Chronic Assessment and plan: Hold antihypertensives as patient was hypotensive and ER. Currently on dopamine drip Qualifiers: Hypertension type: essential hypertension Qualified Code(s): I10 - Essential (primary) hypertension (7) Hypotension Current Visit: Yes Status: Resolved Assessment and plan: Most likely due to bradycardia. Patient does appear dehydrated. Will also hydrate him gently while treating his bradycardia. Continue dopamine. Qualifiers: Hypotension type: hypotension due to drug Qualified Code(s): I95.2 - Hypotension due to drugs (8) Acute kidney injury Current Visit: Yes Status: Acute Assessment and plan: Patient with mild acute kidney injury on chronic kidney disease stage II. Hold diuretics. Monitor renal function closely. Gentle IV hydration. - Time Spent With Patient Total time spent is greater than 50% in coordination of care (as documented) at patient's floor/unit and/or counseling patient:
[2018-07-27] MEDS ORDERED: Metoclopramide 10 MG/2 ML VIAL IVP ONE (17:45)
[2018-07-27] MEDS ORDERED: Dextrose Gel 15 GM/37.5 ML TUBE PO PRN ×2 (18:05)
[2018-07-27] MEDS ORDERED: *HR* Dextrose 50 % in Water (Syg) 50 ML SYRINGE IVP PRN (18:05)
[2018-07-27] MEDS ORDERED: D5% in Water 1,000 ML IVC PRN (18:05)
[2018-07-27] MEDS ORDERED: *HR* Promethazine 25 MG/ML VIAL IVP PRN (18:10)
[2018-07-27] MEDS ORDERED: Naloxone 0.4 MG/ML INJ IVP PRN (18:21)
[2018-07-27 20:42] LABS: VBG HCO3 26 mEq/L (21-27); VBG PCO2 56 mmHg (41-51); VBG PH 7.28 pH Units (7.32-7.42); VBG PO2 117 mmHg (25-50)
--- NOTE | 2018-07-27 20:42 | Procedure Note ---
Date of procedure: 07/27/18 Pre-op diagnosis: third degree heart block Post-op diagnosis: same Procedure: Written consent obtained, area was prepped and draped in sterile fashion. Area over the right femoral vein was anesthetized with 4cc of 1% Lidocaine. Using a Cook needle, the right femoral vein was cannulated with ease and dark, non- pulsatile blood returned. Using a Modified Seldinger technique, a guidewire was passed through the needle and the needle was removed. A small incision was made and a dilator was passed over the guidewire. A 7-Faroese triple lumen catheter was then passed over the guidewire into the vein and then the guidewire was removed. The catheter was then sutured in place. All three ports joseph back easily and then flushed easily. A sterile dressing with antibiotic pad was placed over the hub of the catheter. Pt tolerated procedure well and EBL was approximately 10cc. Surgeon: Star Morgan Was there an assistant associate professor present: Yes Retread Builder: Ankur Vásquez Estimated blood loss (cc): 10 Specimen: none Pathology: none sent Condition: stable Disposition: ICU
[2018-07-27] MEDS: Insulin LISPRO 300 UNITS/3 ML VIAL SQ SCH ×2 (21:53→23:05)
[2018-07-27 23:40] LABS: Bilirubin,Urine Negative (Negative); Blood,Urine Trace (Negative); Clarity,Urine Clear (Clear); Color,Urine Yellow (Yellow); Glucose,Urine (UA) >=1000 mg/dL (Normal); Ketones,Urine Negative (Negative); Leukocyte Esterase,Urine Negative (Negative); Nitrite,Urine Negative (Negative); Protein,Urine Negative (Neg-Trace); Specific Gravity,Urine 1.023 (1.010-1.025); Urobilinogen,Urine Normal (Normal)
[2018-07-27 23:43] LABS: Bacteria,Urine None Seen per hpf (None-Few); Hyaline Casts,Urine None Seen per lpf (None-Few); RBC,Urine 0-3 per hpf (0-3); Squamous Epithelial Cell,Urine Moderate per lpf (None-Few); WBC,Urine 0-3 per hpf (0-3)
[2018-07-28 03:26] LABS: Basophils # 0.1 K/mcL (0.0-0.2); Basophils % 0.4 %; Eosinophils # 0.1 K/mcL (0.0-0.6); Eosinophils % 0.5 %; Hematocrit 39.4 % (37.5-50.1); Hemoglobin 13.8 g/dL (12.9-16.9); Immature Granulocytes % 0.5 % (0-4); Lymphocytes # 2.2 K/mcL (0.6-4.6); Lymphocytes % 13.1 %; Mean Corpuscular Hemoglobin 29.2 pg (28.0-33.3); Mean Corpuscular Volume 83.5 fL (83.0-100.0); Monocytes # 1.9 K/mcL (0.0-1.3); Monocytes % 11.4 %; Neutrophils # 12.3 K/mcL (1.6-8.9); Platelet Count 222 K/mcL (140-400); Red Blood Count 4.72 M/mcL (4.19-5.50); Segmented Neutrophils % 74.1 %
[2018-07-28 03:49] LABS: Calcium 9.2 mg/dL (8.6-10.3); Potassium 4.2 mEq/L (3.5-5.1)
[2018-07-28] MEDS: Insulin LISPRO 300 UNITS/3 ML VIAL SQ SCH ×4 (07:35→20:26)
[2018-07-28] MEDS: Ringers Solution, Lactated 1,000 ML IVC SCH ×2 (10:11→21:42)
--- NOTE | 2018-07-28 10:37 | Cardiology Consult Note ---
Addendum entered and electronically signed by Dino Clay MD 07/28/18 18:30: I examined this patient and my medical decision-making was reviewed with the TRAVEL TRAILER COMPONENTS ASSEMBLER. I agree with the documented findings, disposition and treatment plan as described except to the extent set forth below. A/P: Symptomatic bradycardia on two AVNB medications History of AF/AF sp DCCV CAD sp PCI with recent C nonobstructive CAD BB/CCB held, continue to monitor with plan to resume chronic oral low dose BB once stabilized. If AF RVR, then Cardizem drip. Continue chronic antico agulation. Thank you for the consult, Dino Clay MD [facility] Original Note: Date of Encounter: 07/28/18 Time of Encounter: 10:34 Assessment and Plan (1) Symptomatic bradycardia Current Visit: Yes Status: Acute Presented with HR 40s to PCP office yesterday. Complaints of fatigue, dizziness/lightheadedness. K, Mag, TSH WNL. Hx A-Fib/Flutter. Recently d/c'd home 07/19 on Cardizem CD 240mg daily and Lopressor 25mg BID after successful DCCV to SR. Reviewed admission ECG with Dr. Clay. Appears to be A-Fib with slow ventricular response. Pt was given atropine and started on Dopamine gtt, currently at 3. HR 80s, SR at bedside. AV scott blockers on hold. BP 90s systolic. Check TTE. Last TTE 09/2017 EF preserved. If able to wean off dopamine today and BP/HR remain stable, will consider adding back low dose BB tomorrow. Will need EP referral outpt given his A-Fib/Flutter hx. No indication currently for PPM. Continue to follow. (2) Atrial fibrillation and flutter Current Visit: Yes Status: Acute Patient has a history of AFIB/AFL. D/t persistent AFIB, underwent DCCV to NSR in April 2018 which was successful. Presented to cardiology office 07/16 found to be in AFL with RVR. Hospitalized with successful DCCV to SR 07/19/18. Was d/c'd home on Cardizem CD 240mg daily and Lopressor 25mg BID. As above, presented to PCP office 07/27, found to be bradycardic. AV scott blockers currently on hold and on Dopamine gtt. Anticoagulated on Eliquis prior to admission. Recommend resuming with recent DCCV. (3) CAD (coronary artery disease) Current Visit: No Status: Chronic NSTEMI in 2014 with reduced EF. Patient had a LHC in 2017 after having an abnormal stress test. Showed patent prior stent and no intervention was warranted. LV systolic function normalized in September 2017. Recommend ASA, Statin. No BB d/t bradycardia. Qualifiers: Coronary Disease-Associated Artery/Lesion type: [place] artery [place] vs. transplanted heart: [place] heart Associated angina: with stable angina Qualified Code(s): I25.118 - Atherosclerotic heart disease of [place] coronary artery with other forms of angina pectoris Discussion w patient/family: The assessment and plan as outlined above was discussed with the patient and/or family members who expressed understanding and agreement. All questions were answered. Thank you for involving us in the care of your patient. Please call with any questions. I will discuss all the above with Dr. Clay and make changes as necessary. History of Present Illness Consult date: 07/28/18 Requesting physician: Ciera Gomez Chief complaint: fatigue History of present illness: Mr. Mcguire is a 52 year old male with PMH of atrial flutter/fibrillation, CHF, CAD, DM, HTN and HLD who was discharged from the hospital one week ago after being admitted for A-Flutter RVR and had successful DCCV to . At that time he was started on Cardizem 240 mg daily in addition to Lopressor 25 mg BID. He reports since d/c he was weak/fatigued with dizziness/lightheadedness, exertional dyspnea. He saw his PCP yesterday, noted to be hypotensive and bradycardic with HR of 40 and was sent to the ER. On his way here patient developed intractable nausea and vomiting. He was started on IV dopamine after he received atropine. Dopamine currently at 3. HR now improved--80s, SR. BP 90s systolic. Prior CV testing: C 08/09/16: There is moderate one vessel CAD. There is moderate LV Dysfunction EF 35-40%. Stent placed from a prior procedure in the 1st Marginal is patent. TTE 10/22/17: LVEF 60-65%. Indeterminate diastolic function. Definity echo contrast was used. Normal right ventricular structure and function. No significant valvular dysfunction. No pulmonary hypertension. Past Med Surg Social Fam HX - Past Medical History Medical history: atrial fibrillation, CHF, coronary artery disease, diabetes, hyperlipidemia, hypertension, myocardial infarction, venous stasis Psychiatric history: no psych history - Past Surgical History Surgical History: angioplasty/stent, cataract, other Additional surgical history: bilaterally cataract surgery - Social History Smoking Status: Never smoker Smokeless Tobacco Status: No Alcohol use: none Drug use: none - Family History Father Living Status: Hx Family Cardiac Disorders: Yes Hx Family Endocrine Disorder: Yes (DMII) Hx Family Neurologic Disorders: Yes (CVA) Mother Living Status: Hx Family Cardiac Disorders: Yes Hx Family Endocrine Disorder: Yes (DM) Hx Family Neurologic Disorders: Yes (CVA, dementia) Medications and Allergies Insulin DETEMIR [Levemir Flextouch] 42 unit SQ BID 01/06/16 [History] Potassium Chloride [Klor-Con Sprinkle] 10 meq PO DAILY 01/06/16 [History] Spironolactone [Aldactone] 50 mg PO DAILY 01/06/16 [History] metFORMIN [Glucophage] 500 mg PO BIDWM 01/06/16 [History] glyBURIDE [GlyBURIDE] 10 mg PO BIDWM 08/08/16 [History] Gabapentin [Neurontin] 300 mg PO BID 08/09/16 [History] Apixaban [Eliquis] 5 mg PO BID #60 tablet 08/11/16 [Rx] Aspirin Enteric Coated [Aspirin EC] 81 mg PO DAILY #30 tablet.dr 08/11/16 [Rx] Lisinopril [Zestril] 2.5 mg PO DAILY #60 tablet 08/11/16 [Rx] Metoprolol [Lopressor] 25 mg PO BID 07/16/18 [History] Nitroglycerin [Nitrostat] 0.4 mg SL Q5MIN PRN 07/16/18 [History] Simvastatin 80 mg PO HS 07/16/18 [History] Diltiazem CD (24hr) [Cardizem CD] 240 mg PO DAILY 30 Days #30 cap.er.24h 07/19/18 [Rx] Bumetanide [Bumex] 2 mg PO DAILY 07/27/18 [History] Insulin ASPART [NovoLOG] 10 unit SQ 0800 07/27/18 [History] Insulin ASPART [NovoLOG] 20 unit SQ 12,17 07/27/18 [History] Allergy/AdvReac Type Severity Reaction Status Date / Time No Known Allergies Allergy Verified 07/16/18 19:47 All Systems Review: The remainder of the systems were reviewed and are negative - Constitutional Constitutional: fatigue - Cardiovascular Cardiovascular: as per HPI, dyspnea on exertion, lightheadedness Physical Examination Vital Signs, Last 4 Hours Temp Pulse Resp BP Pulse Ox 07/28/18 10:00 83 14 98/39 91 07/28/18 09:00 87 14 107/63 94 07/28/18 08:30 86 07/28/18 08:00 88 14 107/66 91 07/28/18 07:30 98.5 F 82 14 120/69 94 Vital Signs Temp Pulse Resp BP Pulse Ox 07/28/18 10:00 83 14 98/39 91 07/28/18 09:00 87 14 107/63 94 07/28/18 08:30 86 07/28/18 08:00 88 14 107/66 91 07/28/18 07:30 98.5 F 82 14 120/69 94 07/28/18 06:00 82 14 106/66 91 07/28/18 05:00 80 14 109/68 95 07/28/18 04:11 10 108/60 91 07/28/18 04:00 98.8 F 81 16 108/60 91 07/28/18 03:00 80 16 106/64 90 07/28/18 02:00 82 16 115/72 93 07/28/18 01:00 82 16 102/72 93 07/28/18 00:00 85 13 115/68 93 07/27/18 23:00 87 13 133/69 96 07/27/18 22:00 84 16 115/67 92 07/27/18 21:00 98.2 F 84 10 124/67 95 07/27/18 20:18 96 07/27/18 20:01 77 16 138/71 8 07/27/18 18:00 84 100/86 96 07/27/18 17:10 66 18 82/36 93 07/27/18 16:00 97.4 F L 42 16 83/49 93 Intake and Output 07/27/18 07/28/18 07/28/18 23:59 07:59 15:59 Intake Total 0 / 0 295.2 / 295.2 Output Total 1150 / 1150 Balance 0 / 0 -854.8 / -854.8 Intake: IV Fluids 295.2 / 295.2 DOPamine Premix 400mg/250mL 400 295.2 / 295.2 mg In 250 ml @ 5 MCG/KG/MIN 23 .814 mls/hr IVC .[id number] [facility] Rx #:[id number] Oral 0 / 0 0 / 0 Output: Urine 1150 / 1150 Other: Weight 127.006 kg 121.3 kg Blood Glucose* 270 Patient Weight 07/28/18 23:59 Weight 121.3 kg General: Conversant, No Apparent Distress HEENT: Atraumatic, Normocephaly, Mucus Membranes Moist Neck: No JVD, Normal carotid pulses Cardiac: Reg Rate and Rhythm, Normal S1 and S2, No Murmur Lungs: Normal Breath Sounds, No Wheeze, Rales, Rhonchi Neuro: Alert and responsive, No focal deficits noted Abdomen: Soft, Non-Tender Skin: No rashes noted on visualized skin Musculoskeletal: No Chest Wall Tenderness Extremities: No Clubbing, No Cyanosis, No Edema, Normal Pulses Results 07/28/18 03:17 07/28/18 03:17 Lab Results 07/27/18 07/27/18 07/27/18 16:32 16:32 16:32 WBC 17.6 H Hgb 14.1 Hct 42.2 Plt Count 277 INR 1.7 APTT 35.6 Sodium 128 L Potassium 4.4 Chloride 90 L Carbon Dioxide 24 BUN 25 H Creatinine 1.79 H Glucose 421 H Calcium 9.1 Magnesium 1.7 Troponin I < 0.03 07/28/18 07/28/18 03:17 03:17 WBC 16.6 H Hgb 13.8 Hct 39.4 Plt Count 222 INR APTT Sodium 131 L Potassium 4.2 Chloride 94 L Carbon Dioxide 28 BUN 24 H Creatinine 1.64 H Glucose 314 H Calcium 9.2 Magnesium Troponin I Short CBC 07/28/18 07/27/18 Range/Units 03:17 16:32 WBC 16.6 H 17.6 H (4.3-11.1) K/mcL Hgb 13.8 14.1 (12.9-16.9) g/dL Hct 39.4 42.2 (37.5-50.1) % Plt Count 222 277 (140-400) K/mcL Neutrophils # 12.3 H 10.4 H (1.6-8.9) K/mcL BMP 07/28/18 07/27/18 Range/Units 03:17 16:32 Sodium 131 L 128 L (136-145) mEq/L Potassium 4.2 4.4 (3.5-5.1) mEq/L Chloride 94 L 90 L (98-107) mEq/L Carbon Dioxide 28 24 (23-29) mEq/L BUN 24 H 25 H (6-20) mg/dL Creatinine 1.64 H 1.79 H (0.70-1.30) mg/dL Glucose 314 H 421 H (70-105) mg/dL Calcium 9.2 9.1 (8.6-10.3) mg/dL Cardiac Enzymes 07/27/18 Range/Units 16:32 Troponin I < 0.03 (< 0.04) ng/mL Urine 07/27/18 Range/Units 23:15 Urine Color Yellow (Yellow) Urine Clarity Clear (Clear) Urine pH 5.0 (5.0-8.0) pH Units Ur Specific [place] 1.023 (1.010-1.025) Urine Protein Negative (Neg-Trace) mg/dL Urine Glucose (UA) >=1000 H (Normal) mg/dL Impressions Chest X-Ray 07/27/18 16:28 IMPRESSION: No acute cardiopulmonary process. D/ / Russ Ulrich MD / Russ Ulrich MD Interpreting Provider: Russ Ulrich MD Active Medications Dextrose/Water (Dextrose 50% (Syg)) 25 ml IVP AD PRN PRN Reason: Hypoglycemia Stop: 01/26/19 18:06 Glucagon (Glucagen) 1 mg IM ONCE PRN PRN Reason: Hypoglycemia Stop: 01/26/19 18:06 Glucose (Gluctose) 15 gm PO ONCE PRN PRN Reason: Hypoglycemia Stop: 01/26/19 18:06 Glucose (Gluctose) 30 gm PO ONCE PRN PRN Reason: Hypoglycemia Stop: 01/26/19 18:06 Dopamine HCl/Dextrose (Dopamine Premix 400mg/250ml) 400 mg in 250 mls @ 23.814 mls/hr IVC .[id number] VLAD; Protocol Stop: 01/26/19 16:31 Last Titration: 07/28/18 05:06 Dose: 2 mcg/kg/min, 9.5 mls/hr Dextrose (Dextrose 5%) 1,000 mls @ 100 mls/hr IVC .Q10H PRN PRN Reason: HYPOGLYCEMIA Stop: 01/26/19 18:06 Lactated Ringer's (Lactated Ringers) 1,000 mls @ 75 mls/hr IVC .[id number] VLAD Stop: 01/27/19 08:01 Last Admin: 07/28/18 10:11 Dose: 75 mls/hr Insulin Human Lispro (Humalog) 0 units SQ HS VLAD; Protocol Stop: 01/26/19 21:01 Last Admin: 07/27/18 23:05 Dose: 8 unit Insulin Human Lispro (Humalog) 0 units SQ TIDAC VLAD; Protocol Stop: 01/26/19 18:07 Last Admin: 07/28/18 07:35 Dose: 12 unit Naloxone HCl (Narcan) 0.4 mg IVP Q2M PRN PRN Reason: SEE COMMENTS Stop: 01/26/19 18:22 Promethazine HCl (Phenergan) 12.5 mg IVP Q4HR PRN PRN Reason: Nausea And Vomiting Stop: 01/26/19 18:11 - Imaging and Cardiology Echo: report reviewed Cardiac cath: report reviewed - EKG Interpretation EKG results cardiology: personally reviewed Consult Discharge Plan - Plan Referrals: Kandis Miles, TRAVEL TRAILER COMPONENTS ASSEMBLER [Primary Care Provider] -
[2018-07-28] MEDS: Apixaban 5 MG TABLET PO SCH ×2 (11:24→20:26)
--- NOTE | 2018-07-28 12:13 | Internal Med Progress Note ---
Hospitalist Progress Note - Encounter Date of Encounter: 07/28/18 Time of Encounter: 09:30 - Subjective Interval History: Patient is feeling much better today. Denies any new episodes of nausea or vomiting. No chest pain or palpitations. No dizziness or lightheadedness. Less fatigued. Remains on dopamine drip. - Exam Vitals: Temp Pulse Resp BP Pulse Ox 98.4 F 82 16 120/56 94 07/28/18 11:00 07/28/18 11:00 07/28/18 11:00 07/28/18 11:00 07/28/18 11:00 Exam: General: Patient is alert, no acute distress, oriented x 3 ENT: Mucous membranes moist Respiratory: Good respiratory effort. Normal breath sounds. No wheezing or crackles. Cardiovascular: Regular rate and rhythm. s1 and s2 normal No clicks, rubs, gallops, or murmurs. No pedal edema Abdomen: Abdomen is soft, nontender. Bowel sounds are present Musculoskeletal: Spontaneously moving all extremities Skin: warm, dry, intact. Neuro: Alert oriented x 3 normal cranial nerves, no focal deficits - Assessment and Plan (1) Symptomatic bradycardia Current Visit: Yes Status: Acute Assessment and Plan: Evaluated by cardiology. Appears to be atrial fibrillation with slow ventricular response. Continue to hold negative chronotropic agents. Wean off dopamine as tolerated. Cardiology recommendations will be followed. High risk for complications as patient is still on dopamine drip. (2) Third degree heart block Current Visit: Yes Status: Ruled-out Assessment and Plan: EKG and telemetry evaluated by cardiology. Appears to be atrial fibrillation with slow ventricular response further evaluation. (3) Intractable nausea and vomiting Current Visit: Yes Status: Resolved Assessment and Plan: This has now resolved. Will start patient on a diet. (4) Atrial fibrillation Current Visit: Yes Status: Chronic Assessment and Plan: With slow ventricular response. Cardiology consult appreciated. Continue to monitor heart rate. Wean dopamine as tolerated. On anticoagulation with Eliquis. Will resume (5) Chronic systolic (congestive) heart failure Current Visit: Yes Status: Chronic Assessment and Plan: Not in acute exacerbation. Holding Lasix due to acute kidney injury. Gentle hydration as patient appears to be hypovolemic (6) Diabetes mellitus Current Visit: Yes Status: Chronic Assessment and Plan: Will place patient on diabetic diet. Continue sliding scale insulin coverage. (7) Hypertension Current Visit: Yes Status: Chronic Assessment and Plan: Continue to hold antihypertensive medications as patient hypotensive yesterday and has been on dopamine since then. (8) Hypotension Current Visit: Yes Status: Resolved Assessment and Plan: Hypotension improved with IV dopamine. Will taper off dopamine drip. (9) Acute kidney injury Current Visit: Yes Status: Acute Assessment and Plan: Renal function improving. Continue to hold diuretics for now. DVT Prophylaxis: With Eliquis - Time Spent with Patient Total time spent is greater than 50% in coordination of care (as documented) at patient's floor/unit and/or counseling patient: Internal Medicine: Result - Labs CBC & Chem 7: 07/28/18 03:17 07/28/18 03:17 Labs: Short CBC 07/27/18 07/28/18 Range/Units 16:32 03:17 WBC 17.6 H 16.6 H (4.3-11.1) K/mcL Hgb 14.1 13.8 (12.9-16.9) g/dL Hct 42.2 39.4 (37.5-50.1) % Plt Count 277 222 (140-400) K/mcL Neutrophils # 10.4 H 12.3 H (1.6-8.9) K/mcL BMP 07/27/18 07/28/18 16:32 03:17 Sodium 128 L 131 L Potassium 4.4 4.2 Chloride 90 L 94 L Carbon Dioxide 24 28 BUN 25 H 24 H Creatinine 1.79 H 1.64 H Glucose 421 H 314 H Calcium 9.1 9.2 Cardiac Enzymes 07/27/18 Range/Units 16:32 Troponin I < 0.03 (< 0.04) ng/mL Urine 07/27/18 Range/Units 23:15 Urine Color Yellow (Yellow) Urine Clarity Clear (Clear) Urine pH 5.0 (5.0-8.0) pH Units Ur Specific [place] 1.023 (1.010-1.025) Urine Protein Negative (Neg-Trace) mg/dL Urine Glucose (UA) >=1000 H (Normal) mg/dL - ABG Interpretation ABG results: PT/INR, D-dimer PT 18.6 Seconds (9.4-12.1) H 07/27/18 16:32 - Impressions Impressions Chest X-Ray 07/27/18 16:28 IMPRESSION: No acute cardiopulmonary process. D/ / Russ Ulrich MD / Russ Ulrich MD Interpreting Provider: Russ Ulrich MD Consult Discharge Plan - Plan Referrals: Kandis Miles, COMMISSIONING AGENT [Primary Care Provider] - (3) Intractable nausea and vomiting Qualifiers: Vomiting type: cyclical vomiting Qualified Code(s): G43.A1 - Cyclical vomiting, intractable (4) Atrial fibrillation Qualifiers: Atrial fibrillation type: paroxysmal Qualified Code(s): I48.0 - Paroxysmal atrial fibrillation (6) Diabetes mellitus Qualifiers: Diabetes mellitus type: type 2 Diabetes mellitus snf insulin use: with snf use Diabetes mellitus complication status: with hyperglycemia Qualified Code(s): E11.65 - Type 2 diabetes mellitus with hyperglycemia; Z79.4 - shelter (current) use of insulin (7) Hypertension Qualifiers: Hypertension type: essential hypertension Qualified Code(s): I10 - Essential (primary) hypertension (8) Hypotension Qualifiers: Hypotension type: hypotension due to drug Qualified Code(s): I95.2 - Hypotension due to drugs
[2018-07-28] MEDS ORDERED: Nitroglycerin 0.4 MG TAB.SUBL SL PRN (12:16)
[2018-07-28] MEDS: Insulin DETEMIR 100 UNIT/ML X5UNITS SQ SCH (20:26)
[2018-07-28] MEDS: Gabapentin 300 MG CAPSULE PO SCH (20:26)
[2018-07-28] MEDS ORDERED: Perflutren Lipid Microsphere 1.3 ML in 0.9 % Sodium Chloride 8.7 ML IVP ONE (20:40)
[2018-07-29 03:08] LABS: Basophils # 0.1 K/mcL (0.0-0.2); Basophils % 0.5 %; Eosinophils # 0.3 K/mcL (0.0-0.6); Eosinophils % 2.9 %; Hematocrit 39.4 % (37.5-50.1); Hemoglobin 12.9 g/dL (12.9-16.9); Immature Granulocytes % 0.5 % (0-4); Lymphocytes # 2.6 K/mcL (0.6-4.6); Lymphocytes % 23.9 %; Mean Corpuscular HGB Conc 32.7 g/dL (31.6-35.5); Mean Corpuscular Hemoglobin 28.5 pg (28.0-33.3); Mean Corpuscular Volume 87.2 fL (83.0-100.0); Mean Platelet Volume 9.9 fL (9.4-12.4); Monocytes # 1.3 K/mcL (0.0-1.3); Monocytes % 12.1 %; Neutrophils # 6.6 K/mcL (1.6-8.9); Platelet Count 179 K/mcL (140-400); Red Blood Count 4.52 M/mcL (4.19-5.50); Red Cell Distribution Width 16.2 % (11.5-14.5); Segmented Neutrophils % 60.1 %
[2018-07-29 03:28] LABS: BUN/Creatinine Ratio 13 (6-26); Blood Urea Nitrogen 15 mg/dL (6-20); Carbon Dioxide 29 mEq/L (23-29); Chloride 98 mEq/L (98-107); Glucose 211 mg/dL (70-105); Osmolality,Calculated 287 (280-300); Potassium 3.8 mEq/L (3.5-5.1); Sodium 135 mEq/L (136-145); eGFR For Non-African Americans > 60 (> 60)
[2018-07-29] MEDS: Insulin LISPRO 300 UNITS/3 ML VIAL SQ SCH ×2 (07:47→12:01)
[2018-07-29] MEDS: Gabapentin 300 MG CAPSULE PO SCH (07:48)
[2018-07-29] MEDS: Apixaban 5 MG TABLET PO SCH (07:48)
[2018-07-29] MEDS: Insulin DETEMIR 100 UNIT/ML X5UNITS SQ SCH (07:54)
[2018-07-29] MEDS: Ringers Solution, Lactated 1,000 ML IVC SCH (07:59)
[2018-07-29] MEDS ORDERED: Aspirin 81 MG TAB.CHEW PO SCH (09:00)
--- NOTE | 2018-07-29 10:11 | Cardiology Progress Note ---
Date of Encounter: 07/29/18 Time of Encounter: 10:06 Assessment and Plan (1) Symptomatic bradycardia Current Visit: Yes Status: Acute Presented with HR 40s to PCP office 07/27. Complaints of fatigue, dizziness/lightheadedness. K, Mag, TSH WNL. Hx A-Fib/Flutter. Recently d/c'd home 07/19 on Cardizem CD 240mg daily and Lopressor 25mg BID after successful DCCV to SR. AV scott blockers were stopped on admission. Reviewed admission ECG with Dr. Clay. Appears to be A-Fib with slow ventricular response. Pt was given atropine and started on Dopamine gtt. Dopamine gtt now off. HR 90s at bedside, BP 120s systolic. TTE pending. Last TTE 09/2017 EF preserved. Will add back low dose BB--Lopressor 25mg BID. Will need EP referral outpt given his A-Fib/Flutter hx. No indication currently for PPM. If HR remains stable on low dose BB and if no significant findings on TTE, will plan to sign off later today. Discussed with Dr. Clay. Barrera for D/C this evening or tomorrow if HR remains stable. (2) Atrial fibrillation and flutter Current Visit: Yes Status: Acute Patient has a history of AFIB/AFL. D/t persistent AFIB, underwent DCCV to NSR in April 2018 which was successful. Presented to cardiology office 07/16 found to be in AFL with RVR. Hospitalized with successful DCCV to SR 07/19/18. Was d/c'd home on Cardizem CD 240mg daily and Lopressor 25mg BID. As above, presented to PCP office 07/27, found to be bradycardic. AV scott blockers held. HR now improved. Add back Lopressor 25mg BID. Anticoagulated on Eliquis. (3) CAD (coronary artery disease) Current Visit: No Status: Chronic NSTEMI in 2013 with reduced EF. Patient had a LHC in 2016 after having an abnormal stress test. Showed patent prior stent and no intervention was warranted. LV systolic function normalized in September 2017. Recommend ASA, Statin. Added back low dose BB. Qualifiers: Coronary Disease-Associated Artery/Lesion type: [place] artery [place] vs. transplanted heart: [place] heart Associated angina: with stable angina Qualified Code(s): I25.118 - Atherosclerotic heart disease of [place] coronary artery with other forms of angina pectoris Discussion w patient/family: The assessment and plan as outlined above was discussed with the patient and/or family members who expressed understanding and agreement. All questions were answered. Thank you for involving us in the care of your patient. Please call with any questions. I will discuss all the above with Dr. Clay and make changes as necessary. Subjective Principal diagnosis: Bradycardia Interval history: Pt denies acute complaints this AM. Dopamine gtt weaned off last night. HR 90s S R at bedside. BP 120s systolic. TTE pending. Objective Vital Signs, Last 4 Hours Temp Pulse Resp BP Pulse Ox 07/29/18 08:17 97.5 F L 07/29/18 08:00 98 16 118/72 96 07/29/18 07:00 98 18 119/61 98 Vital Signs Temp Pulse Resp BP Pulse Ox 07/29/18 08:17 97.5 F L 07/29/18 08:00 98 16 118/72 96 07/29/18 07:00 98 18 119/61 98 07/29/18 06:00 95 17 122/72 91 07/29/18 05:00 96 15 123/58 96 07/29/18 04:00 96 14 109/65 95 07/29/18 03:44 98.1 F 07/29/18 03:00 94 8 118/49 95 07/29/18 02:00 95 19 114/75 94 07/29/18 01:00 93 14 117/69 95 07/29/18 00:00 92 11 114/70 96 07/28/18 23:43 98.2 F 07/28/18 23:00 89 17 125/77 91 07/28/18 22:00 87 12 114/70 96 07/28/18 21:00 89 14 119/68 96 07/28/18 20:00 90 11 123/71 99 07/28/18 19:51 98.2 F 07/28/18 18:00 88 18 131/70 100 07/28/18 17:00 90 16 108/56 97 07/28/18 16:47 98.2 F 07/28/18 16:00 86 18 120/77 96 07/28/18 15:00 85 14 110/65 94 07/28/18 14:00 18 113/88 95 07/28/18 13:00 86 14 139/61 96 07/28/18 12:00 88 12 125/75 96 07/28/18 11:20 98.4 F 07/28/18 11:00 98.4 F 82 16 120/56 94 Intake and Output 07/28/18 07/29/18 07/29/18 23:59 07:59 15:59 Intake Total 1000 / 1000 1460 / 1460 Output Total 1200 / 1200 Balance -200 / -200 1460 / 1460 Intake: IV Fluids 1000 / 1000 1000 / 1000 Lactated Ringers 1,000 ML @ 75 1000 / 1000 1000 / 1000 mls/hr IVC .[id number] [facility] Rx#: [id number] Oral 460 / 460 Output: Urine 700 / 700 Catheter 500 / 500 Other: Meal Breakfast Percent of Meal Consumed 100% # Voids 1 Weight 122.2 kg Blood Glucose* 182 187 183 General: Conversant, No Apparent Distress HEENT: Atraumatic, Normocephaly, Mucus Membranes Moist Neck: No JVD, Normal carotid pulses Cardiac: Reg Rate and Rhythm, Normal S1 and S2, No Murmur Lungs: Normal Breath Sounds, No Wheeze, Rales, Rhonchi Neuro: Alert and responsive, No focal deficits noted Abdomen: Soft, Non-Tender Skin: No rashes noted on visualized skin Musculoskeletal: No Chest Wall Tenderness Extremities: No Clubbing, No Cyanosis, No Edema, Normal Pulses Results 07/29/18 03:00 07/29/18 03:00 Lab Results 07/29/18 07/29/18 03:00 03:00 WBC 11.0 Hgb 12.9 Hct 39.4 Plt Count 179 Sodium 135 L Potassium 3.8 Chloride 98 Carbon Dioxide 29 BUN 15 Creatinine 1.12 Glucose 211 H Calcium 9.0 Short CBC 07/29/18 Range/Units 03:00 WBC 11.0 (4.3-11.1) K/mcL Hgb 12.9 (12.9-16.9) g/dL Hct 39.4 (37.5-50.1) % Plt Count 179 (140-400) K/mcL Neutrophils # 6.6 (1.6-8.9) K/mcL BMP 07/29/18 Range/Units 03:00 Sodium 135 L (136-145) mEq/L Potassium 3.8 (3.5-5.1) mEq/L Chloride 98 (98-107) mEq/L Carbon Dioxide 29 (23-29) mEq/L BUN 15 (6-20) mg/dL Creatinine 1.12 (0.70-1.30) mg/dL Glucose 211 H (70-105) mg/dL Calcium 9.0 (8.6-10.3) mg/dL Active Medications Apixaban (Eliquis) 5 mg PO BID [facility] Stop: 01/27/19 11:16 Last Admin: 07/29/18 07:48 Dose: 5 mg Aspirin (Aspirin) 81 mg PO DAILY [facility] Stop: 01/28/19 09:01 Last Admin: 07/29/18 07:48 Dose: 81 mg Dextrose/Water (Dextrose 50% (Syg)) 25 ml IVP AD PRN PRN Reason: Hypoglycemia Stop: 01/26/19 18:06 Gabapentin (Neurontin) 300 mg PO BID [facility] Stop: 01/27/19 21:01 Last Admin: 07/29/18 07:48 Dose: 300 mg Glucagon (Glucagen) 1 mg IM ONCE PRN PRN Reason: Hypoglycemia Stop: 01/26/19 18:06 Glucose (Gluctose) 15 gm PO ONCE PRN PRN Reason: Hypoglycemia Stop: 01/26/19 18:06 Glucose (Gluctose) 30 gm PO ONCE PRN PRN Reason: Hypoglycemia Stop: 01/26/19 18:06 Dextrose (Dextrose 5%) 1,000 mls @ 100 mls/hr IVC .Q10H PRN PRN Reason: HYPOGLYCEMIA Stop: 01/26/19 18:06 Insulin Detemir (Levemir) 20 unit SQ BID [facility] Stop: 01/27/19 21:01 Last Admin: 07/29/18 07:54 Dose: 20 unit Insulin Human Lispro (Humalog) 0 units SQ HS [facility]; Protocol Stop: 01/26/19 21:01 Last Admin: 07/28/18 20:26 Dose: 5 unit Insulin Human Lispro (Humalog) 0 units SQ TIDAC [facility]; Protocol Stop: 01/26/19 18:07 Last Admin: 07/29/18 07:47 Dose: 8 unit Metoprolol Tartrate (Lopressor) 25 mg PO BID [facility] Stop: 01/28/19 09:46 Naloxone HCl (Narcan) 0.4 mg IVP Q2M PRN PRN Reason: SEE COMMENTS Stop: 01/26/19 18:22 Nitroglycerin (Nitroglycerin) 0.4 mg SL Q5M PRN PRN Reason: Chest Pain Stop: 01/27/19 12:17 Promethazine HCl (Phenergan) 12.5 mg IVP Q4HR PRN PRN Reason: Nausea And Vomiting Stop: 01/26/19 18:11 Simvastatin (Zocor) 80 mg PO HS [facility]; Protocol Stop: 01/27/19 21:01 Last Admin: 07/28/18 20:27 Dose: 80 mg - Imaging and Cardiology Echo: pending Consult Discharge Plan - Plan Referrals: Kandis Miles, TELEMARKETING MANAGER [Primary Care Provider] -
--- NOTE | 2018-07-29 12:58 | Event Note ---
Date of Encounter: 07/29/18 Time of Encounter: 12:56 - Cardiology Event Note TTE resulted--LVEF 60%. Normal LV chamber size and function. Grossly, moderate cLVH. Mild LVDD. Atypical septal motion consistent with bundle branch block. Grossly, normal right ventricular structure and function. No evidence of pulm onary hypertension identified. RVSP not well obtained. No significant valvular dysfunction. BP/HR tolerated 12.5mg dose of Lopressor. Will increase to his home dose of 25mg BID. Cardiology signing off. Reconsult PRN. Will coordinate outpt follow-up in [address] Clay. Carrilloay with d/c home this afternoon or tomorrow AM if vitals remain stable. Okay to step down out of ICU.
--- NOTE | 2018-07-29 13:50 | Discharge Summary ---
- NOTES TO OUTPATIENT PROVIDER Notes to Outpatient Provider: Patient with a history of atrial fibrillation/flutter, coronary artery disease, diabetes, hypertension who was hospitalized here after presenting to the ER with bradycardia along with intractable nausea and vomiting. Patient had recently been placed on Cardizem 240 mg in addition to Lopressor 25 mg twice daily to control A. fib with RVR. He was also hypotensive. As such he was placed on dopamine drip and admitted to ICU. EKG was concerning for possible third degree AV block. Cardiology was consulted. They evaluated the patient and his EKG. They believed his EKG was mostly A. fib with slow ventricular response related to rate controlling medications. Patient was eventually weaned off dopamine and his heart rate has improved. His blood pressure has also been well controlled. He has now been placed back on 25 mg of Lopressor and he is stable to be discharged home. He will follow up with cardiology as outpatient. His nausea and vomiting improved after receiving Reglan in the ER. He is tolerating diabetic diet well. He is on anticoagulation with Eliquis. Orders not resulted at time of discharge: Pending orders 07/30/18 04:00 BMP [Basic Metabolic Panel] AM 0400 Complete Blood Count [HEME] AM 0400 07/31/18 04:00 BMP [Basic Metabolic Panel] AM 0400 Complete Blood Count [HEME] AM 0400 Date of Encounter: 07/29/18 Time of Encounter: 09:30 - Discharge Diagnosis (1) Symptomatic bradycardia Priority: Primary Status: Acute (2) Atrial fibrillation with slow ventricular response Priority: Secondary Status: Acute (3) Third degree heart block Priority: Secondary Status: Ruled-out (4) Intractable nausea and vomiting Priority: Secondary Status: Resolved Qualifiers: Vomiting type: cyclical vomiting Qualified Code(s): G43.A1 - Cyclical vomiting, intractable (5) Atrial fibrillation Priority: Secondary Status: Chronic Qualifiers: Atrial fibrillation type: paroxysmal Qualified Code(s): I48.0 - Paroxysmal atrial fibrillation (6) Chronic systolic (congestive) heart failure Priority: Secondary Status: Chronic (7) Diabetes mellitus Priority: Secondary Status: Chronic Qualifiers: Diabetes mellitus type: type 2 Diabetes mellitus 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 terminal 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 insulin use: with joint terminal 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 use Diabetes mellitus complication status: with hyperglycemia Qualified Code(s): E11.65 - Type 2 diabetes mellitus with hyperglycemia; 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 Mcguire is a 52 year old male Patient with a history of atrial fibrillation/flutter, coronary artery disease, diabetes, hypertension who was hospitalized here after presenting to the ER with bradycardia along with intractable nausea and vomiting. Patient had recently been placed on Cardizem 240 mg in addition to Lopressor 25 mg twice daily to control A. fib with RVR. He was also hypotensive. As such he was placed on dopamine drip and admitted to ICU. EKG was concerning for possible third degree AV block. Cardiology was c onsulted. They evaluated the patient and his EKG. They believed his EKG was mostly A. fib with slow ventricular response related to rate controlling medications. Patient was eventually weaned off dopamine and his heart rate has improved. His blood pressure has also been well controlled. He has now been placed back on 25 mg of Lopressor and he is stable to be discharged home. He will follow up with cardiology as outpatient. His nausea and vomiting improved after receiving Reglan in the ER. He is tolerating diabetic diet well. He is on anticoagulation with Eliquis. Discharge discussed with: patient, nurse, client experience consultant - Time Spent with Patient Total time spent providing and/or coordinating discharge services: Time spent: Less than 30 minutes (25 min) - Discharge Medications Prescriptions: Continue glyBURIDE [GlyBURIDE] 10 mg PO BIDWM Gabapentin [Neurontin] 300 mg PO BID Apixaban [Eliquis] 5 mg PO BID #60 tablet Aspirin Enteric Coated [Aspirin EC] 81 mg PO DAILY #30 tablet. Lisinopril [Zestril] 2.5 mg PO DAILY #60 tablet Bumetanide [Bumex] 2 mg PO DAILY Insulin ASPART [NovoLOG] 20 unit SQ 12,17 Insulin ASPART [NovoLOG] 10 unit SQ 0800 metFORMIN [Glucophage] 500 mg PO BIDWM Insulin DETEMIR [Levemir Flextouch] 42 unit SQ BID Spironolactone [Aldactone] 50 mg PO DAILY Potassium Chloride [Klor-Con Sprinkle] 10 meq PO DAILY Nitroglycerin [Nitrostat] 0.4 mg SL Q5MIN PRN PRN Reason: Chest Pain Metoprolol [Lopressor] 25 mg PO BID Simvastatin 80 mg PO HS Discontinued Diltiazem CD (24hr) [Cardizem CD] 240 mg PO DAILY 30 Days #30 cap.er.24h Home Medications: Insulin DETEMIR [Levemir Flextouch] 42 unit SQ BID 01/06/16 [History] Potassium Chloride [Klor-Con Sprinkle] 10 meq PO DAILY 01/06/16 [History] Spironolactone [Aldactone] 50 mg PO DAILY 01/06/16 [History] metFORMIN [Glucophage] 500 mg PO BIDWM 01/06/16 [History] glyBURIDE [GlyBURIDE] 10 mg PO BIDWM 08/08/16 [History] Gabapentin [Neurontin] 300 mg PO BID 08/09/16 [History] Apixaban [Eliquis] 5 mg PO BID #60 tablet 08/11/16 [Rx] Aspirin Enteric Coated [Aspirin EC] 81 mg PO DAILY #30 tablet. 08/11/16 [Rx] Lisinopril [Zestril] 2.5 mg PO DAILY #60 tablet 08/11/16 [Rx] Metoprolol [Lopressor] 25 mg PO BID 07/16/18 [History] Nitroglycerin [Nitrostat] 0.4 mg SL Q5MIN PRN 07/16/18 [History] Simvastatin 80 mg PO HS 07/16/18 [History] Bumetanide [Bumex] 2 mg PO DAILY 07/27/18 [History] Insulin ASPART [NovoLOG] 10 unit SQ 0800 07/27/18 [History] Insulin ASPART [NovoLOG] 20 unit SQ 12,17 07/27/18 [History] Allergies/Adverse Reactions: Allergy/AdvReac Type Severity Reaction Status Date / Time No Known Allergies Allergy Verified 07/16/18 19:47 Date of admission: 07/27/18 19:19 Primary care physician: Kandis Miles CNP Consults: 07/28/18 09:00 Consult to Cardiology [CONS] Routine Comment: Consulting Provider: Cardiology Newman Reason for Consult: Bradycardia/ possible 3 degree AV block Time Notified: :00 Call Completed: Yes 07/29/18 09:16 Consult to Nurse Navigator [CONS] Routine Comment: CHF Discharging clinician: Ciera Gomez Anticipated date of discharge: 07/29/18 - Constitutional Vitals: Temp Pulse Resp BP Pulse Ox 97.6 F 96 12 115/86 93 07/29/18 12:24 07/29/18 13:22 07/29/18 13:22 07/29/18 13:00 07/29/18 12:00 General appearance: Present: cooperative, A&O X 3, severe distress, answers questions appropriately Exam: . - Respiratory Respiratory exam: Present: CTAB. Absent: accessory muscle use, rales, rhonchi, wheezes - Cardiovascular Cardiovascular exam: Present: RRR, +S1, +S2. Absent: diastolic murmur, gallop, rubs, systolic murmur - GI/Abdominal GI/Abdominal exam: Present: normal bowel sounds, soft, no peritoneal signs. Absent: distended, tenderness - Patient Status Disposition: Home, Self-Care Condition: Good Functional capacity at discharge: independent ambulation Overall status at discharge: patient is progressing back to baseline - Discharge Instructions Instructions: Diabetes Mellitus Type 2 in Adults (DC), Chronic Hypertension (DC) Follow Up With: Kandis Miles CNP [Primary Care Provider] - (In 1-2 weeks) Susan Houston DO [Partnered Physician] - (in 1-2 weeks) - Diet and Activity Activity: increase activity as tolerated Diet: diabetic diet, low fat, low cholesterol, low salt diet
[2018-07-29 15:03] VITALS: BP 105/62
== END 2018-07-29 16:47 | disposition home or self-care (01) | DRG 309 ==
LOC: EMEROOARM 15:57 → SUATTDRO 19:19 → ICNU 19:19
PROVIDERS: ADMIT Internal Medicine Nephrology; ATTEND Internal Medicine